=== PATIENT | female | born 1975 | race Caucasian/White ===

== ENCOUNTER 2024-08-01 10:43 | Emergency (ER) | payer MEDICAID, SELFPAY ==
[2024-08-01 10:47] VITALS: BP 147/92; PULSE 79; TEMP 37.1; O2SAT 97
--- NOTE | 2024-08-01 10:56 | PC.NURSE ---
limited on ROM with lifting arm d/t pain increase
--- NOTE | 2024-08-01 10:59 | ED_ITS ---
HPI HPI - General Adult General Chief complaint: Extremity Injury, Upper Stated complaint: UPPER EXTREMITY PAIN Time Seen by Provider: 08/01/24 10:47 Source: patient Mode of arrival: walk-in Limitations: no limitations History of Present Illness HPI narrative: 48-year-old female presents to the emergency department for right shoulder pain. She gives no history of injury or unusual activity. It has been hurting for 2 days and it seemed to get worse today. No weakness or numbness in her arm. No issues with her left shoulder and she is right-handed. The pain hurts more if she moves her arm, particularly away from her body. Related Data Home Medications ?Medication ?Instructions ?Recorded ?Confirmed No Known Home Medications 08/01/24 08/01/24 Previous Rx's ?Medication ?Instructions ?Recorded ibuprofen 800 mg tablet 800 mg PO Q8H PRN pain #20 tabs 08/01/24 Allergies Allergy/AdvReac Type Severity Reaction Status Date / Time No Known Drug Allergies Allergy Verified 08/01/24 10:49 Opioid HPI Opioid Management Most Recent Opioid Data: No Data to Display Review of Systems ROS Narrative A ten point review of systems is negative except as noted above. PFSH PFSH Social History Little interest or pleasure in doing things: not at all Feeling down, depressed, or hopeless: not at all Exam Narrative Exam Narrative: Nurses note and vital signs reviewed and patient is not hypoxic. General: The patient appears well and in no apparent distress. Patient is resting comfortably on cart. Skin: Warm, dry, no pallor noted. There is no rash noted. Head: Normocephalic, atraumatic Eye: Normal conjunctiva, no drainage Ears, Nose, Mouth, and Throat: oral mucosa is moist. Nares patent. Cardiovascular: Regular Rate and Rhythm Respiratory: Patient is in no distress, no accessory muscle use, lungs are clear to auscultation, no wheezing, rales or rhonchi Back: non-tender GI: Soft and nontender Musculoskeletal: The right shoulder is examined. There is no deformity bruising or rash or abrasions. The right elbow is nontender and the radial pulse 2+. Fingers, wrist, and elbow have full range of motion. She seems to have discomfort with range of motion of her shoulder particularly with abduction. Neurological: A&O, normal speech Psychiatric: Cooperative Constitutional Vital Signs, click to edit/add: Last Vital Signs Temp 98.8 F 08/01/24 10:47 Pulse 79 08/01/24 10:47 Resp 16 08/01/24 10:47 BP 147/92 H 08/01/24 10:47 Pulse Ox 97 08/01/24 10:47 O2 Del Method Room Air 08/01/24 10:47 Course Vital Signs Vital signs: Vital Signs Temperature 98.8 F 08/01/24 10:47 Pulse Rate 79 08/01/24 10:47 Respiratory Rate 16 08/01/24 10:47 Blood Pressure 147/92 H 08/01/24 10:47 Pulse Oximetry 97 08/01/24 10:47 Oxygen Delivery Method Room Air 08/01/24 10:47 Temperature 98.8 F 08/01/24 10:47 Pulse Rate 79 08/01/24 10:47 Respiratory Rate 16 08/01/24 10:47 Blood Pressure 147/92 H 08/01/24 10:47 Pulse Oximetry 97 08/01/24 10:47 Oxygen Delivery Method Room Air 08/01/24 10:47 Medical Decision Making MDM Narrative Medical decision making narrative: X-ray per radiologist shows no acute findings. Sling applied, application checked by me and found to be appropriate, she is neurovascularly intact. She was prescribed ibuprofen and an appointment was made for her to see Dr. Hamilton on August 04 at 12:30 PM. Treatment diagnosis and follow-up were discussed with the patient. Differential Diagnosis Differential Diagnosis: Shoulder sprain, arthritis, rotator cuff injury Imaging Data Right shoulder x-ray: Radiologist's impression: No acute bony or articular abnormality. No bony erosion Discharge Plan Discharge Chief Complaint: Extremity Injury, Upper Clinical Impression: Pain in right shoulder Patient Disposition: Home, Self-Care Time of Disposition Decision: 11:39 Condition: Good Mode of Transportation: Private Vehicle Prescriptions / Home Meds: New ibuprofen 800 mg tablet 800 mg PO Q8H PRN (Reason: pain) Qty: 20 0RF No Action No Known Home Medications Print Language: Maltese Instructions: Shoulder Pain (ED) Referrals: [facility] [Primary Care Provider] - 1 week Eduar Hamilton MD [Physician] - 08/04/24 12:30 pm
== END 2024-08-01 12:08 | disposition home or self-care (01) ==
PROVIDERS: Emergency Provider Emergency Medicine
DX: M25.511 Pain in right shoulder (principal)
CPT/HCPCS: 73030; 99283

== ENCOUNTER 2024-08-20 12:03 | Outpatient (OUT) | payer MEDICAID, SELFPAY ==
--- NOTE | 2024-08-20 12:05 | MR_ITS ---
The [address] [address] Patient Name: RICHIE GUTIERREZ MRN: [facility]:[id number] date: 1975 Sex: F Assigned Patient Location: MRI Current Patient Location: MRI Accession/Order Number: [id number] Exam Date: 08/20/2024 14:00 Report Date: 08/20/2024 14:11 At the request of: JOY JOY Procedure: MR shoulder RT wo con MRI right Shoulder without contrast TECHNIQUE: Multiplanar T1 and T2-weighted imaging obtained without contrast. HISTORY: Right shoulder pain for 3 months. No injury COMPARISON: None BONE MARROW EDEMA: No focal subchondral bone marrow edema of the posterior lateral portion of the humeral head superiorly. Focal bone marrow edema of the greater tuberosity. FRACTURE: None AC JOINT: Degenerative spurring and reactive bone marrow edema and soft tissue edema. SHOULDER ROOF LIGAMENTS: The coracoacromial and coracoclavicular ligaments are intact. ROTATOR CUFF: Full thickness tear of the supraspinatus tendon near the greater tuberosity insertion. Mild less than 1 cm retraction. Thickening and increased signal changes of the supraspinatus tendon consistent with tendinosis. Teres minor tendon intact. Subscapularis tendon intact. ROTATOR CUFF INTERVAL: Unremarkable BURSAL FLUID: Present GLENOID: Suspected Bankart tear cartilaginous tear anterior portion of the labrum. BICEPS LABRAL COMPLEX: Intact LONG HEAD OF BICEPS TENDON: Intact GLENOHUMERAL LIGAMENTS: The superior glenohumeral ligament is intact. The middle glenohumeral ligament is intact. The anterior and posterior glenohumeral ligaments are intact. JOINT EFFUSION: Large MUSCLES: Normal signal intensity of the muscles. NO SUBCUTANEOUS TISSUES: No subcutaneous abnormalities identified. MR/MR shoulder RT wo con IMPRESSION: Full-thickness tear anterior portion of the subscapularis tendon near the greater tuberosity insertion. Less than 1 cm retraction. Tendinosis of the infraspinatus tendon. Large joint effusion and subacromial subdeltoid bursal fluid. Spurring of acromioclavicular joint. Concern for cartilaginous Bankhart lesion anterior upper portion of the glenoid labrum. Hill-Sachs deformity. Correlate with history of shoulder dislocation. Impression dictated by: Tito Back M.D.08/20/2024 2:11 PM Dictation Location: [place] [address] Electronically authenticated by: [id number] Y Date: 08/20/2024 14:11
--- OUTSIDE RECORDS SUMMARY | 2024-08-20 12:13 | XMS_ITS | CCD ---
Author Organization [facility] ion [facility] Care Team Providers Care Director Product Management Name Role Phone Demi Garcia Primary Care Provider [phone] DEMI GARCIA Primary Care Unavailable PRADEEP PARISH Attending Unavailable DEMI GARCIA Primary Care Unavailable SE SMALLWOOD Admitting Unavailable SE SMALLWOOD Attending Unavailable DEMI GARCIA Primary Care Unavailable DEMI GARCIA Primary Care Unavailable [facility] [place], [place] JESUS Primary Care Unavailable JACK, DR VASILIY Osborne Admitting Unavailabl e JACK, DR VASILIY Osborne Consulting Unavailabl e JACK, DR VASILIY Osborne Attending Unavailabl e RADHA, DR SAKSHI Martinez Consulting Unavailable Radha TIPPLE REPAIRER - Demi QUESADA Primary Care Pro vider Valarie Charles Unavailable Lainey Luo Unavailable Piedad Holland Unavailable Violetta Cao Unavailable Unavailable Primary Care Provider Unavailabl e NO FAMILY, PHYSICIAN Primary Care Provider Unava ilMD Wade Gagnon Emergency Provider Wade Cook Attending Unavailable Wade Cook Admitting Unavailable NO FAMILY, PHYSICIAN Primary Care Unavailable SUSAN GARBIEL Attending Unavailable BENEDICTO, KAREN Referring Unavailable BENEDICTO, KAREN Primary Care Unavailable Unavailable Primary Care Provider Unavailabl e ANTHONY LOZANO Attending Unavailable SELF Referring Unavailable ANTHONY LOZANO Referring Unavailable Benedicto TIPPLE REPAIRER-AERIAL GUNNER SUPERINTENDENT, Karen Primary Care Provider BENEDICTO, KAREN Referring Unavailable BENEDICTO, KAREN Primary Care Unavailable BENEDICTO, KAREN Referring Unavailable BENEDICTO, KAREN Primary Care Unavailable BENEDICTO, BAXTER Primary Care Unavailable JAGJIT HERRERA Attending Unavailable JAGJIT HERRERA Attending Unavailable JAGJIT HERRERA Referring Unavailable BENEDICTO, BAXTER Primary Care Unavailable WADE ANDRES Admitting Unavailable WADE ANDRES Attending Unavailable BENEDICTO, BAXTER Primary Care Unavailable JOSE TARIQ Attending Unavailable BENEDICTO, BAXTER Primary Care Unavailable WADE ANDRES Attending Unavailable WADE ANDRES Referring Unavailable BENEDICTO, BAXTER Primary Care Unavailable ADAM ESTRELLA Attending Unavailable BENEDICTO, BAXTER Referring Unavailable BENEDICTO, BAXTER Primary Care Unavailable BENEDICTO, BAXTER Primary Care Unavailable DEMARIO ARIZMENDI Attending Unavailable BENEDICTO, BAXTER Primary Care Unavailable WADE KNOX Attending Unavaila ble Medications Current Medications Medication Drug Class(es) Dates Sig (Normalized) Sig (Original) acetaminophen 325 mg oral tablet (1 source) Start: 05-02-2019 650 mg, Oral, EVERY 4 HOURS PRN, Fever, For temp greater than 100.5 F (38 C), Starting Sun05/02/19 at 1449 Maximum dose of acetaminophen is 4000 mg from all sources in 24 hours. [id number] 200 actuat albuterol 0.09 mg/actuat metered dose inhaler (3 sources) beta2-Adrenergic Agonist Start: 01-17-2022 take 2 puff(s) by inhalation every four to six hours as needed Albuterol Sulfate HFA 108 (90 Base) MCG/ACT 2 puffs as needed Inhalation every 4-6 hours for 14 days Jan, Active Start: 03-07-2021 End: 08-24-2023 take 2 puff(s) by inhalation every four hours as needed for wheezing albuterol (PROVENTIL HFA;VENTOLIN HFA) 90 mcg/actuation inhaler Indications: Viral URI with cough , COPD exacerbation ([facility]) Inhale 2 puffs every 4 (four) hours as needed for wheezing. 18 g 03/07/2021 08/24/2023 Discontinued (Therapy completed) atorvastatin 10 mg oral tablet (4 sources) HMG-CoA Reductase Inhibitor Start: 05-02-2019 take 10 mg by mouth once daily 10 mg, Oral, DAILY, First dose on Sun05/02/19 at 1845 ubidecarenone 50 mg oral capsule (3 sources) take 1 tablet by mouth once daily Coenzyme Q10 (CO Q-10) 50 MG CAPS Take 1 tablet by mouth nightly 0 Active dexamethasone 0.001 mg/mg / tobramycin 0.003 mg/mg ophthalmic ointment (1 source) Aminoglycoside Antibacterial, Corticosteroid Start: 07-05-2022 TobraDex 0.3-0.1 % 1 application Ophthalmic Three times a day Jul, Active doxycycline hyclate 100 mg oral capsule (1 source) Tetracycline-class Drug Start: 07-31-2022 take 1 capsule by mouth every twelve hours Doxycycline Hyclate 100 MG 1 capsule Orally Twice a day for 10 Jul, Active 0.4 ml enoxaparin sodium 100 mg/ml prefilled syringe (1 source) Low Molecular Weight Heparin Start: 05-02-2019 inject 40 mg by subcutaneous injection once daily 40 mg, Subcutaneous, DAILY, First dose on Sun05/02/19 at 1600 erythromycin 0.005 mg/mg ophthalmic ointment (1 source) Macrolide, Macrolide Antimicrobial Start: 11-28-2017 Erythromycin 5 MG/GM 1 application four times per day Ophthalmic Four times a day for 14 days Nov, Active estrogens, conjugated (prison) 0.3 mg oral tablet (4 sources) Estrogen Start: 05-02-2019 take 0.45 mg by mouth once daily 0.45 mg, Oral, DAILY, First dose on Sun05/02/19 at 1845 take 1 tablet by mouth once alex y estrogens, conjugated, (PREMARIN) 0.45 MG tablet Take 0.45 mg by mouth daily 0 Active magnesium hydroxide 80 mg/ml oral suspension (1 source) Start: 05-02-2019 take 30 mL by mouth once daily as needed for constipation 30 mL, Oral, DAILY PRN, Constipation, Starting Sun05/02/19 at 1449 First line therapy for constipation. 24 hr metoprolol succinate 25 mg extended release oral tablet (1 source) beta-Adrenergic Victoria Start: 09-20-2023 take 1 tablet by mouth every twenty-four hours in the morning metoprolol succinate XL (TOPROL XL) 25 mg 24 hr tablet Take 1 tablet (25 mg total) by mouth in the morning. 90 tablet 3 09/20/2023 Active naproxen 500 mg oral tablet (1 source) Nonsteroidal Anti-inflammatory Drug Start: 10-31-2022 take 1 tablet by mouth twice daily Naproxen (Naprosyn) 500 mg tablet Active 500 MG PO Twice daily October 31, 2022 12:00am 24 hr nicotine 0.875 mg/hr transdermal system (3 sources) Cholinergic Nicotinic Agonist Start: 05-04-2019 apply 1 dose transdermal route once daily nicotine (NICODERM CQ) 21 MG/24HR Place 1 patch onto the skin daily 30 patch 3 05/04/2019 Active Start: 05-04-2019 apply 1 dose transde rmal route once daily nicotine (NICODERM CQ) 21 MG/24HR Place 1 patch onto the skin daily 30 patch 3 05/04/2019 Active Start: 05-02-2019 nicotine (MAX DERM CQ) 21 MG/24HR 1 patch ondansetron 4 mg oral tablet (6 sources) Serotonin-3 Receptor Antagonist Start: 03-07-2021 End: 08-24-2023 take 1 tablet by mouth every eight hours as needed Ondansetron HCl 4 MG 1 tablet Orally every 8 hours as needed for 5 days Jan, Active Start: 05-02-2019 4 mg, Intraven ous, EVERY 6 HOURS PRN, Nausea, Starting 05/02/19 at 1449 Start: 01-14-2019 End: 01-14-2019 ondansetron (ZOFRAN-ODT) disintegrating tablet 4 mg Start: 10-01-2018 End: 01-14-2019 take 1 tablet by mouth every eight hours as needed for nausea ondansetron (ZOFRAN ODT) 4 MG disintegrating tablet Take 1 tablet by mouth every 8 hours as needed for Nausea or Vomiting 12 tablet 0 10/01/2018 01/14/2019 Discontinued (Alternate therapy) predniSONE 20 mg oral tablet (1 source) Start: 07-31-2022 take 1 tablet by mouth every twelve hours predniSONE 20 MG 1 tablet Orally 2 times a day for 5 day(s) Jul, Active sod sulf-pot chloride-mag sulf 1.479-0.188- 0.225 gram tablet (1 source) Start: 08-24-2023 sod sulf-pot c hloride-mag sulf 1.479-0.188- 0.225 gram tablet Indications: Encounter for screening colonoscopy Please see instructional sheet given by physicians office. 24 tablet 08/24/2023 Active 3 ml sodium chloride 9 mg/ml injection (5 sources) Start: 05-02-2019 10 mL, Intrave nous, EVERY 12 HOURS SCHEDULED (2 times per day), First dose on Sun05/02/19 at 2100 Start: 05-02-2019 Intravenous, a t 125 mL/hr, CONTINUOUS, Starting Sun05/02/19 at 1515 Start: 05-02-2019 take 10 mL intraveno usly once as needed 10 mL, Intravenous, PRN, Line Care, After every IV line use, Starting Sun05/02/19 at 1449 Start: 05-02-2019 End: 05-02-2019 1,000 mL (18.1 mL/kg), Intravenous, at 500 mL/hr, Administer over 2 Hours, ONCE, Sun05/02/19 at 1515, For 1 dose Start: 05-02-2019 End: 05-02-2019 0.9 % sodium chloride bolus vitamin b12 1 mg oral tablet (4 sources) Vitamin B12 Start: 05-02-2019 take 2500 ug by mouth once daily 2,500 mcg, Oral, DAILY, First dose on Sun05/02/19 at 1845 vitamin B-12 (CY ANOCOBALAMIN) 100 MCG tablet Take 2,500 mcg by mouth daily 0 Active Completed/Discontinued Medications Medication Drug Class(es) Dates Sig (Normalized) Sig (Original) acetaminophen 325 mg / HYDROcodone bitartrate 5 mg oral tablet (1 source) Opioid Agonist Start: 06-30-2013 End: 01-14-2019 take 1 tablet by mouth every six hours as needed for pain HYDROcodone-acetam inophen (NORCO) 5-325 MG per tablet Take 1 tablet by mouth every 6 hours as needed for Pain (Avoid driving and alcohol use but taking this medication, may cause fatigue). 8 tablet 0 06/30/2013 01/14/2019 Discontinued (Therapy completed) benzonatate 100 mg oral capsule (1 source) Non-narcotic Antitussive Start: 03-07-2021 End: 08-24-2023 take 1 capsule by mouth every eight hours benzonatate (TESSALON) 100 mg capsule Take 1 capsule (100 mg total) by mouth every 8 (eight) hours. 21 capsule 03/07/2021 08/24/2023 Discontinued (Therapy completed) ibuprofen 800 mg oral tablet (5 sources) Nonsteroidal Anti-inflammatory Drug Start: 04-14-2022 End: 08-24-2023 take 1 tablet by mouth three times daily ibuprofen (MOTRIN) 800 mg tablet Take 1 tablet (800 mg total) by mouth 3 (three) times a day. 21 tablet 04/14/2022 08/24/2023 Discontinued (Therapy completed) Start: 05-02-2019 take 800 mg by mouth every six hours as needed for pain 800 mg, Oral, EVERY 6 HOURS PRN, Pain Moderate (4-6), Starting 05/02/19 at 1820 Do not crush or chew. take 4 tablets by [facility] every six hours as needed for pain ibuprofen (ADVIL;MOTRIN) 200 MG tablet Take 800 mg by mouth every 6 hours as needed for Pain. 0 Active iv contrast (will be provided with radiology test) (3 sources) Start: 12-12-2022 End: 12-13-2022 inject 1 dose intravenously once iv contrast (will be provided with radiology test) MRI Brain Inject, intravenously, once for 1 dose.No IV access, insert saline lock prior to beginning of sedation, infusion, injection of imaging exam.Discontinue saline lock post exam. If Pt. has a central line or IVAD, may access for administration according to line specific nursing protocol.Once exam is complete flush line and de-access according to line specific nursing protocol in the MR contrast administration guidelines link 1 Each 0 12/12/2022 12/13/2022 Start: 05-23-2022 End: 05-24-2022 inject 1 dose intravenously once iv contrast (will be provided with radiology test) MRI Brain Inject, intravenously, once for 1 dose.No IV access, insert saline lock prior to beginning of sedation, infusion, injection of imaging exam.Discontinue saline lock post exam. If Pt. has a central line or IVAD, may access for administration according to line specific nursing protocol.Once exam is complete flush line and de-access according to line specific nursing protocol in the MR contrast administration guidelines link 1 Each 0 05/23/2022 05/24/2022 Start: 04-17-2022 End: 04-18-2022 inject 1 dose intravenously once iv contrast (will be provided with radiology test) MRI Brain Inject, intravenously, once for 1 dose.No IV access, insert saline lock prior to beginning of sedation, infusion, injection of imaging exam.Discontinue saline lock post exam. If Pt. has a central line or IVAD, may access for administration according to line specific nursing protocol.Once exam is complete flush line and de-access according to line specific nursing protocol in the MR contrast administration guidelines link 1 Each 0 04/17/2022 04/18/2022 Active Comment on above: MRI Brain Inject, in travenously, once for 1 dose.No IV access, insert saline lock prior to beginning of sedation, infusion, injection of imaging exam.Discontinue saline lock post exam. If Pt. has a central line or IVAD, may access for administration according to line specific nursing protocol.Once exam is complete flush line and de-access according to line specific nursing protocol in the MR contrast administration guidelines link 10 ml lidocaine hydrochloride 10 mg/ml injection (1 source) Antiarrhythmic, Amide Local Anesthetic Start: End: lidocaine 1 % injection 5 mL loratadine 10 mg oral tablet (5 sources) End: CLARITIN 10 mg tablet Take 1 tablet (10 mg total) by mouth as needed for allergies. 09/20/2023 Discontinued losartan potassium 25 mg oral tablet (1 source) Angiotensin 2 Receptor Victoria Start: End: take 1 tablet by mouth in the morning losartan (COZAAR) 25 mg tablet Take 1 tablet (25 mg total) by mouth in the morning. 08/01/2023 08/24/2023 Discontinued (Therapy completed) Problems Active Problems Problem Classification Problem Date Documented Da te Episodic/Chronic Chronic obstructive pulmonary disease and bronchiectasis (1 source) Bronchitis, not specified as acute or chronic Episodic Disorders of lipid metabolism (5 sources) Mixed hyperlipidemia; Translations: [Mixed hyperlipidemia] Onset: 04-04-2018 04-04-2018 Chronic E Codes: Fall (1 source) Unspecified fall, initial encounter; Translations: [UNSPECIFIED FALL INITIAL ENCOUNTER] Onset: 11-22-2020 Episodic Essential hypertension (3 sources) Essential hypertension; Translations: [Essential (primary) hypertension] Onset: 09-20-2023 09-20-2023 Chronic Immunizations and screening for infectious disease (8 sources) Encounter for screening for other viral diseases; Translations: [Contact with and (suspected) exposure to other viral communicable diseases] Onset: 02-25-2021 Resolved: 01-17-2022 Episodic Inflammation; infection of eye (except that caused by tuberculosis or sexually transmitteddisease) (1 source) Hordeolum internum right upper eyelid Episodic Other bone disease and musculoskeletal deformities (1 source) Costal chondritis; Translations: [Chondrocostal junction syndrome [Tietze]] 10-31-2022 Episodic Other bone disease and musculoskeletal deformities (1 source) Chondrocostal junction syndrome [Tietze]; Translations: [Chondrocostal junction syndrome (tietze)] Onset: 07-11-2024 Episodic Other injuries and conditions due to external causes (1 source) Injury due to chemical exposure; Translations: [Exposure to chemical inhalation] Episodic Other lower respiratory disease (1 source) Personal history of other diseases of the respiratory system Episodic Other lower respiratory disease (1 source) Rib pain Onset: 07-11-2024 Episodic Other nervous system disorders (5 sources) Carpal tunnel syndrome of right wrist; Translations: [Carpal tunnel syndrome, right upper limb] Onset: 06-04-2018 06-04-2018 Chronic Other non-traumatic joint disorders (3 sources) Pain in left ankle and joints of left foot; Translations: [PAIN IN LEFT ANKLE] Onset: 11-18-2020 Episodic Other nutritional; endocrine; and metabolic disorders (7 sources) H/O: endocrine disorder; Translations: [Personal history of other endocrine, nutritional and metabolic disease] Episodic Other upper respiratory disease (5 sources) Chronic rhinitis; Translations: [Chronic rhinitis] Onset: 04-04-2018 04-04-2018 Chronic Sprains and strains (1 source) Sprain of unspecified ligament of left ankle, initial encounter; Translations: [SPRAIN UNS LIGAMENT LT ANKLE INIT] Onset: 11-22-2020 Episodic Substance-related disorders (5 sources) Caffeine-related disorder; Translations: [Other stimulant abuse, uncomplicated] Onset: 08-11-2019 08-11-2019 Chronic Unclassified (1 source) Colon Cancer Screening Onset: 08-24-2023 Unclassified (1 source) New Patient Onset: 09-20-2023 Past or Other Problems Problem Classification Problem Date Documented Da te Episodic/Chronic Allergic reactions (5 sources) Irritant contact dermatitis; Translations: [Irritant contact dermatitis due to other agents] Onset: 10-02-2018 10-02-2018 Episodic Conditions associated with dizziness or vertigo (2 sources) Dizziness and giddiness; Translations: [Dizziness] Onset: 02-17-2024 Episodic Fluid and electrolyte disorders (4 sources) Dehydration; Translations: [Dehydration] Onset: 05-02-2019 Episodic Mood disorders (5 sources) Mood disorders Onset: 09-24-2019 09-24-2019 Nonspecific chest pain (2 sources) Chest pain, unspecified; Translations: [Chest pain] Onset: 10-31-2022 Episodic Open wounds of extremities (1 source) Laceration of finger Episodic Other aftercare (5 sources) Removal of sutures done; Translations: [Encounter for removal of sutures] Onset: 05-27-2019 05-27-2019 Episodic Other and unspecified benign neoplasm (1 source) Polyp of colon; Translations: [Polyp of colon] Onset: 09-03-2023 Episodic Other circulatory disease (1 source) Elevated blood-pressure reading, without diagnosis of hypertension Onset: 12-09-2021 Resolved: 12-09-2021 Episodic Other gastrointestinal disorders (5 sources) Functional diarrhea; Translations: [Functional diarrhea] Onset: 10-02-2018 10-02-2018 Episodic Other injuries and conditions due to external causes (5 sources) Injury of left hip region; Translations: [Unspecified injury of left hip, initial encounter] Onset: 05-15-2018 05-15-2018 Episodic Other lower respiratory disease (1 source) Solitary pulmonary nodule; Translations: [Solitary pulmonary nodule] Onset: 02-17-2024 Episodic Other lower respiratory disease (1 source) Shortness of breath; Translations: [Shortness of breath] Onset: 08-09-2023 Episodic Other nervous system disorders (5 sources) Paresthesia of upper limb; Translations: [Anesthesia of skin] Onset: 09-24-2019 09-24-2019 Episodic Other non-traumatic joint disorders (5 sources) Chronic pain of right upper limb; Translations: [Pain in right shoulder] Onset: 03-21-2018 03-21-2018 Episodic Other non-traumatic joint disorders (5 sources) Hip pain; Translations: [Pain in right hip] Onset: 03-21-2018 03-21-2018 Episodic Other non-traumatic joint disorders (5 sources) Bilateral wrist pain; Translations: [Pain in right wrist] Onset: 07-18-2018 07-18-2018 Episodic Other screening for suspected conditions (not mental disorders or infectious disease) (13 sources) Encounter for screening for malignant neoplasm of colon; Translations: [Patient encounter status] Onset: 04-04-2018 08-24-2023 Episodic Other upper respiratory infections (2 sources) Acute upper respiratory infection, unspecified; Translations: [Acute pharyngitis, unspecified] Onset: 03-06-2021 Resolved: 12-09-2021 Episodic Residual codes; unclassified (6 sources) Tobacco user; Translations: [Tobacco use] Onset: 03-21-2018 03-21-2018 Episodic Residual codes; unclassified (5 sources) Family history of umeuj-1-[id number] deficiency; Translations: [Family history of other endocrine, nutritional and metabolic diseases] Onset: 03-21-2018 03-21-2018 Episodic Residual codes; unclassified (1 source) Tobacco use; Translations: [Tobacco use] Onset: 03-21-2018 Episodic Spondylosis; intervertebral disc disorders; other back problems (5 sources) Neck pain; Translations: [Cervicalgia] Onset: 09-04-2019 09-04-2019 Episodic Syncope (15 sources) Syncope and collapse; Translations: [Syncope] Onset: 05-02-2019 Episodic Unclassified (1 source) Cough R05.9 Urinary tract infections (5 sources) Acute cystitis; Translations: [Acute cystitis without hematuria] Onset: 05-06-2019 05-06-2019 Episodic Viral infection (1 source) COVID-19 Onset: 01-17-2022 Resolved: 01-17-2022 Results Test Name Value Interpretation Reference Range Facility XR RIBS LT 3 VWS W PA CHESTo n 07-11-2024 XR RIBS LT 3 VWS W PA CHEST XR RIBS LT 3 VWS W PA CHEST HISTORY: A 48-year-old female with the history of the left lower rib cage pain for few days. TECHNIQUE: Left rib cage with PA view of chest: 3 views COMPARISON: No relevant prior studies are available for comparison. FINDINGS: Marker was placed in the region of the interest of the left lower rib cage. AP and oblique views of the left rib cage reveal no fractures or acute bony pathology. Left rib cage is intact. PA view of chest reveals clear lung saavedra and costophrenic angles. No evidence of pneumothorax or hemothorax. Heart and mediastinum are unremarkable. Hemidiaphragms are normal in position and contour. IMPRESSION: * No evidence of fracture or acute bony pathology in the left rib cage. * No evidence of pulmonary infiltrate, pneumothorax or acute pulmonary pathology. Finalized by Rusty Olivia MD on 07/11/2024 6:06 PM Normal [facility] BASIC METABOLIC PANLon 02-16 Anion gap [Moles/Vol] 11 mmol/L Normal 5-15 [facility] Comment on above: Performed By: #### Keith TEE, 81226-8, BMP ####[facility] ([id number])[address] [place] [address] 80997 Calcium [Mass/Vol] 9.2 mg/dL Normal 8.5-10.5 [facility] Comment on above: Performed By: #### Keith TEE, 46770-7, BMP ####[facility] ([id number])[address] [place] [address] 50985 Chloride [Moles/Vol] 101 mmol/L Normal 98-109 [facility] Comment on above: Performed By: #### Keith TEE, 03358-2, BMP ####[facility] ([id number])[address] [place] [address] 54216 CO2 [Moles/Vol] 22 mmol/L Normal 22-32 [facility] Comment on above: Performed By: #### Keith TEE, 11937-1, BMP ####[facility] ([id number])[address] [place] [address] 23814 Creatinine [Mass/Vol] 0.73 mg/dL Normal 0.40-1.00 [facility] Comment on above: Result Comment: METH OD TRACEABLE TO IDMS STANDARD Performed By: #### Keith TEE, 74571-3, BMP ####[facility] ([id number])[address] [place] [address] 03144 eGFR (CKD-EPI) NON-RACE DEPENDENT >90 Normal >59 [facility] Comment on above: Result Comment: Reported eGFR is based on the CKD-EPI 2020 equation that does not use a race coefficient. Performed By: #### Keith TEE, 73868-0, BMP ####[facility] ([id number])[address] [place] [address] 26051 Glucose [Mass/Vol] 126 mg/dL High 65-99 [facility] Comment on above: Performed By: #### Keith TEE, 98725-7, BMP ####[facility] ([id number])[address] [place] [address] 73018 Potassium [Moles/Vol] 3.3 mmol/L Low 3.5-5.0 [facility] Comment on above: Performed By: #### Keith TEE, 73445-7, BMP ####[facility] ([id number])[address] [place] [address] 60354 Sodium [Moles/Vol] 134 mmol/L Normal 134-146 [facility] Comment on above: Performed By: #### Keith TEE, 71339-3, BMP ####[facility] ([id number])[address] [place] [address] 40998 Urea nitrogen [Mass/Vol] 11 mg/dL Normal 5-23 [facility] Comment on above: Performed By: #### Keith TEE, 82159-7, BMP ####[facility] ([id number])[address] [place] [address] 23861 CBC AND AUTO DIFFon 20 24 ABSOLUTE BASOPHIL 0.0 X10E9/L Normal 0.0-0.2 [facility] Comment on above: Performed By: #### Keith TEE, 19937-1, BMP #### [facility] ([id number]) [address] [place] [address] 15224 ABSOLUTE NEUTROPHIL 4.6 X10E9/L Normal 1.5-6.6 [facility] Comment on above: Performed By: #### Keith TEE, 25276-6, BMP #### [facility] ([id number]) [address] [place] [address] 22400 Basophils/100 WBC (Bld) 0.3 % Normal [facility] Comment on above: Performed By: #### Keith TEE, 07015-0, BMP #### [facility] ([id number]) [address] [place] [address] 18146 Eosinophils (Bld) [#/Vol] 0.0 10*3/uL Normal 0.0-0.4 [facility] Comment on above: Performed By: #### Keith TEE, 69042-1, BMP #### [facility] ([id number]) [address] [place] [address] 06126 Eosinophils/100 WBC (Bld) 0.7 % Normal [facility] Comment on above: Performed By: #### Keith TEE, 14172-3, BMP #### [facility] ([id number]) [address] [place] [address] 89036 Erythrocyte distribution width (RBC) [Ratio] 13.2 % Normal 11.5-15.0 [facility] Comment on above: Performed By: #### Keith TEE, 25834-9, BMP #### [facility] ([id number]) [address] [place] [address] 20360 Hematocrit (Bld) [Volume fraction] 45.5 % Normal 35-47 [facility] Comment on above: Performed By: #### Keith TEE, 74729-2, BMP #### [facility] ([id number]) [address] [place] [address] 35659 Hemoglobin (Bld) [Mass/Vol] 15.9 g/dL High 11.7-15.5 [facility] [facility] Comment on above: Performed By: #### Keith TEE, 67757-6, BMP #### [facility] ([id number]) [address] [place] [address] 34709 Lymphocytes (Bld) [#/Vol] 1.5 10*3/uL Normal 1.0-3.5 [facility] Comment on above: Performed By: #### Keith TEE, 69238-8, BMP #### [facility] ([id number]) [address] [place] [address] 52775 Lymphocytes/100 WBC (Bld) 23.7 % Normal [facility] Comment on above: Performed By: #### Keith TEE, 63812-6, BMP #### [facility] ([id number]) [address] [place] [address] 00119 MCH (RBC) [Entitic mass] 33.7 pg Normal 27-34 [facility] Comment on above: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 [place] [address] 82614 GLUCOSE SHIRA Negative Normal NEG [facility] Comment on above: Performed By: #### N UM #### [facility] ([id number]) [address] [place] [address] 82276 KETONES SHIRA Negative Normal NEG [facility] Comment on above: Performed By: #### N UM #### [facility] ([id number]) [address] [place] [address] 23270 LEUKOCYTE ESTERASE SHIRA Negative Normal NEG [facility] Comment on above: Performed By: #### N UM #### [facility] ([id number]) [address] [place] [address] 93433 NITRITE SHIRA Negative Normal NEG [facility] Comment on above: Performed By: #### N UM #### [facility] ([id number]) [address] [place] [address] 52803 PH SHIRA 6.0 Normal 5.0-8.5 [facility] Comment on above: Performed By: #### N UM #### [facility] ([id number]) [address] [place] [address]387 PROTEIN SHIRA Negative Normal NEG [facility] Comment on above: Performed By: #### N UM #### [facility] ([id number]) [address] [place] [address] 64988 SPECIFIC GRAVITY SHIRA 1.010 Normal 1.003-[address] [place] [address] Comment on above: Performed By: #### N UM #### [facility] ([id number]) [address] [place] [address] 48996 UROBILINOGEN SHIRA 0.2 eu/dL Normal <1.1 [facility] Comment on above: Performed By: #### N UM #### [facility] ([id number]) [address] [place] [address] 60031 XR CHEST 2 VWSon 08-09-2023 XR CHEST 2 VWS XR CHEST 2 VWS CLINICAL INFORMATION: . Shortness of breath on exertion. TECHNIQUE/PROCEDURE: Two view chest. COMPARISON: 03/07/2021 FINDINGS: Endotracheal deviation. Cardiac and mediastinal contours are normal. No consolidation, pneumothorax or pleural effusion. No free air. IMPRESSION: * No radiographic evidence of cardiopulmonary disease. Finalized by Rojelio Escobar MD on 08/09/2023 1:45 PM Normal [facility] MRI BRAIN WO/W IVCONon 12-12 [facility] Activated partial thrombopla stin time (aPTT) in platelet poor plasma by coagulation aOrdered By: Wade Cook on 10-31-2022 aPTT Coag (PPP) [Time] 29.2 s 25.1-36.5 [facility] B-Type Natriuretic Peptideon 10-31-2022 Natriuretic peptide B (Bld) [Mass/Vol] 60.0 pg/mL Normal 5-100 [facility] Comment on above: Result Comment: PERF ORMED BY: [place] [address] PATHOLOGIST [employer] MAINTENANCE SUPERVISOR MOHAN KENNEDY M.D. Performed By: #### P TT, PT, CK, HS TROP, BMP, SCAN CBC, BNP #### [address] Basic Metabolic Panelon 10-06 Anion gap [Moles/Vol] 12.4 mmol/L Normal 6.0-15.0 [facility] Comment on above: Performed By: #### P TT, PT, CK, HS TROP, BMP, SCAN CBC, BNP #### [address] Calcium [Mass/Vol] 9.3 mg/dL Normal 8.6-10.3 [facility] Comment on above: Performed By: #### P TT, PT, CK, HS TROP, BMP, SCAN CBC, BNP #### [place] [address] [place] Chloride [Moles/Vol] 105 mmol/L Normal 98-107 [facility] Comment on above: Performed By: #### P TT, PT, CK, HS TROP, BMP, SCAN CBC, BNP #### [address] CO2 [Moles/Vol] 28.0 mmol/L Normal 21.0-31.0 [facility] Comment on above: Performed By: #### P TT, PT, CK, HS TROP, BMP, SCAN CBC, BNP #### [facility] [address] Creatinine [Mass/Vol] 0.70 mg/dL Normal 0.60-1.20 [facility] Comment on above: Performed By: #### P TT, PT, CK, HS TROP, BMP, SCAN CBC, BNP #### [address] Creatinine Clr Calc Pharmacy 87.36 [facility] Comment on above: Result Comment: PERF ORMED BY: [place] [address] PATHOLOGIST [employer] MAINTENANCE SUPERVISOR MOHAN KENNEDY M.D. Performed By: #### P TT, PT, CK, HS TROP, BMP, SCAN CBC, BNP #### [address] GFR/1.73 sq M.predicted MDRD (S/P/Bld) [Vol rate/Area] mL/min/{1.73_m2} [facility] Comment on above: Performed By: #### P TT, PT, CK, HS TROP, BMP, SCAN CBC, BNP #### [address] Glucose [Mass/Vol] 88 mg/dL Normal 70-100 [facility] Comment on above: Result Comment: [place] Glucose Reference Range is dependent on time and content of last meal. Glucose of more than 200 mg/dL in a nonstressed, ambulatory subject supports the diagnosis of Diabetes Mellitus. ADA recommended reference range Performed By: #### P TT, PT, CK, HS TROP, BMP, SCAN CBC, BNP #### [address] Potassium [Moles/Vol] 3.4 mmol/L Low 3.5-5.1 [facility] Comment on above: Performed By: #### P TT, PT, CK, HS TROP, BMP, SCAN CBC, BNP #### [facility] [address] [place] [address] [place] Sodium [Moles/Vol] 142 mmol/L Normal 136-145 [facility] Comment on above: Performed By: #### P TT, PT, CK, HS TROP, BMP, SCAN CBC, BNP #### [facility] [address] Urea nitrogen [Mass/Vol] 6 mg/dL Low 7-25 [facility] Comment on above: Performed By: #### P TT, PT, CK, HS TROP, BMP, SCAN CBC, BNP #### [facility] [address] Basophils Auto (Bld) [#/Vol] Ordered By: Wade Cook on 10-31-2022 Basophils (Bld) [#/Vol] 0.0 10*3/uL 0.0-0.2 [facility] Basophils/100 WBC Auto (Bld) Ordered By: Wade Cook on 10-31-2022 Basophils/100 WBC (Bld) 0.6 % . [facility] Calcium [Mass/volume] in Ser um or PlasmaOrdered By: Wade Cook on 10-31-2022 Calcium [Mass/Vol] 9.3 mg/dL 8.6-10.3 [facility] Carbon dioxide, total [Moles /volume] in Serum or PlasmaOrdered By: Wade Cook on 10-31-2022 CO2 [Moles/Vol] 28.0 mmol/L 21.0-31.0 [facility] Chloride [Moles/volume] in S kristine or PlasmaOrdered By: Wade Cook on 10-31-2022 Chloride [Moles/Vol] 105 mmol/L 98-107 [facility] Creatine Kinaseon 10-31-2022 CK [Catalytic activity/Vol] 95 U/L Normal 30-223 [facility] Comment on above: Performed By: #### P TT, PT, CK, HS TROP, BMP, SCAN CBC, BNP #### [facility] [address] [place] [id number] [place] Creatine kinase [Enzymatic a ctivity/volume] in Serum or PlasmaOrdered By: Wade Cook on 10-31-2022 CK [Catalytic activity/Vol] 95 U/L 30-223 [facility] Creatinine [Mass/volume] in Serum or PlasmaOrdered By: Wade Cook on 10-31-2022 Creatinine [Mass/Vol] 0.70 mg/dL 0.60-1.20 [facility] ECG 12 lead ECGon 10-31-2022 ECG 12 lead ECG [facility] [place] [address] Electrocardiograph Report Signed Patient: Eliane Gutierrez MR#: [id number] : 1975 Acct:[id number] Age/Sex: 47 / F ADM Date: 10/31/22 Loc: ER Room: Type: [facility] ER Attending Dr: Ordering Provider: Wade Cook MD Date of Service: 10/31/22 ECG/ECG 12 lead ECG: Chest Pain Copies to: Test Reason : Blood Pressure : 162/087 mmHG Vent. Rate : 068 BPM Atrial Rate : 068 BPM P-R Int : 138 ms QRS Dur : 090 ms QT Int : 434 ms P-R-T Axes : 082 068 073 degrees QTc Int : 461 ms Normal sinus rhythm Possible Left atrial enlargement Cannot rule out Anterior infarct , age undetermined Abnormal ECG No previous ECGs available Confirmed by WADE COOK MD ([id number]) on 11/01/2022 1:41:11 AM Referred By: Electronically Signed By:WADE COOK MD Transcribed By: MUS Signed By Wade Cook MD 10/06 12/27 0141 Normal [facility] Eosinophils Auto (Bld) [#/Vo l]Ordered By: Wade Cook on 10-31-2022 Eosinophils (Bld) [#/Vol] 0.1 10*3/uL 0.0-0.45 [facility] Eosinophils/100 WBC Auto (Bl d)Ordered By: Wade Cook on 10-31-2022 Eosinophils/100 WBC (Bld) 1.7 % . [facility] Erythrocyte distribution wid th Auto (RBC) [Ratio]Ordered By: Wade Cook on 10-31-2022 Erythrocyte distribution width (RBC) [Ratio] 13.4 % 11.9-15.3 [facility] Glucose [Mass/volume] in Ser um or PlasmaOrdered By: Wade oCok on 10-31-2022 Glucose [Mass/Vol] 88 mg/dL 70-100 [facility] Comment on above: ADA recommended refe rence rangeRandom Glucose Reference Range is dependent on time and content of last meal. Glucose of more than 200 mg/dL in a nonstressed, ambulatory subject supports the diagnosis of Diabetes Mellitus. Hematocrit Auto (Bld) [Volum e fraction]Ordered By: Wade Cook on 10-31-2022 Hematocrit (Bld) [Volume fraction] 41.5 % 34.0-46.4 [facility] Hemoglobin [Mass/volume] in BloodOrdered By: Wade Cook on 10-31-2022 Hemoglobin (Bld) [Mass/Vol] 14.5 g/dL 11.8-15.4 [facility] Laboratory - CoagulationOrde red By: Wade Cook on 10-31-2022 PT Coag (PPP) [Time] 10.9 s 9.0-12.9 [facility] Leukocytes [#/volume] correc jeremiah for nucleated erythrocytes in Blood by Automated counOrdered By: Wade Cook on 10-31-2022 WBC corrected for nucl RBC Auto (Bld) [#/Vol] 7.8 10*3/uL 3.8-11.6 [facility] Lymphocytes Auto (Bld) [#/Vo l]Ordered By: Wade Cook on 10-31-2022 Lymphocytes (Bld) [#/Vol] 2.6 10*3/uL 1.00-4.8 [facility] Lymphocytes/100 WBC Auto (Bl d)Ordered By: Wade Cook on 10-31-2022 Lymphocytes/100 WBC (Bld) 33.6 % . [facility] MCH Auto (RBC) [Entitic mass ]Ordered By: Wade Cook on 10-31-2022 MCH (RBC) [Entitic mass] 32.3 pg 24.7-34.3 [facility] MCHC Auto (RBC) [Mass/Vol]Or dered By: Wade Cook on 10-31-2022 MCHC (RBC) [Mass/Vol] 35.0 g/dL 32.0-35.0 [facility] MCV Auto (RBC) [Entitic vol] Ordered By: Wade Cook on 10-31-2022 MCV (RBC) [Entitic vol] 92.5 fL 80-100 [facility] Monocytes Auto (Bld) [#/Vol] Ordered By: Wade Cook on 10-31-2022 Monocytes (Bld) [#/Vol] 0.5 10*3/uL 0.0-0.8 [facility] Monocytes/100 WBC Auto (Bld) Ordered By: Wade Cook on 10-31-2022 Monocytes/100 WBC (Bld) 6.5 % . [facility] Natriuretic peptide B [Mass/ Vol]Ordered By: Wade Cook on 10-31-2022 Natriuretic peptide B (Bld) [Mass/Vol] 60.0 pg/mL 5-100 [facility] Neutrophils Auto (Bld) [#/Vo l]Ordered By: Wade Cook on 10-31-2022 Neutrophils (Bld) [#/Vol] 4.5 10*3/uL 1.8-7.7 [facility] Neutrophils/100 WBC Auto (Bl d)Ordered By: Wade Cook on 10-31-2022 Neutrophils/100 WBC (Bld) 57.6 % . [facility] No Panel InformationOrdered By: Wade Cook on 10-31-2022 Estimated GFR (CKD-EPI) > 60.0 mL/Min [facility] Creatinine Clearance (Chem 87.36 [facility] Nucleated erythrocytes [Pres ence] in Blood by Automated countOrdered By: Wade Cook on 10-31-2022 Nucleated RBC Auto Ql (Bld) 0.1 /100{WBC} 0-0.5 [facility] Partial Thromboplastin Timeo n 10-31-2022 aPTT Coag (Bld) [Time] 29.2 s Normal 25.1-36.5 [facility] Comment on above: Result Comment: PERF ORMED BY: [place] [address] PATHOLOGIST [employer] MAINTENANCE SUPERVISOR MOHAN KENNEDY M.D. Performed By: #### P TT, PT, CK, HS TROP, BMP, SCAN CBC, BNP #### [address] Platelet adequacy [Presence] in Blood by Light microscopyOrdered By: Wade Cook on 10-31-2022 Platelets LM Ql (Bld) Normal Normal [facility] Platelet mean volume Auto (B ld) [Entitic vol]Ordered By: Wade Cook on 10-31-2022 Platelet mean volume (Bld) [Entitic vol] 9.8 fL 6.3-10.7 [facility] Platelet morphology finding [Identifier] in BloodOrdered By: Wade Cook on 10-31-2022 Platelet morphology finding Nom (Bld) N/A [facility] Platelet poor plasma interna tional normalized ratio (INR) by coagulation assay (relatOrdered By: Wade Cook on 10-31-2022 INR Coag (PPP) [Relative time] 0.9 {INR} [facility] Comment on above: INR Therapeutic Rang e A) Pre- and Peroperative OAT started two weeks before surgery. NOT HIP SURGERY: 1.5 - 2.5 HIP SURGERY: 2 - 3B) Primary and secondary prevention of venous THROMBOSIS: 2 - 3C) Active venous thrombosis, pulmonary embolismand prevention of recurrent venous thrombosis: 2 - 3D) Prevention of arterial thromboembolismincluding patients with mechanical heart valves: 3 - 4.5 Platelets Auto (Bld) [#/Vol] Ordered By: Wade Cook on 10-31-2022 Platelets (Bld) [#/Vol] 230 10*3/uL 150-450 [facility] Potassium [Moles/volume] in Serum or PlasmaOrdered By: Wade Cook on 10-31-2022 Potassium [Moles/Vol] 3.4 mmol/L 3.5-5.1 [facility] Prothrombin Time INRon 10-31 INR Coag (PPP) [Relative time] 0.9 {INR} Normal [facility] Comment on above: Result Comment: INR Therapeutic Range A) Pre- and Peroperative OAT started two weeks before surgery. NOT HIP SURGERY: 1.5 - 2.5 HIP SURGERY: 2 - 3 B) Primary and secondary prevention of venous THROMBOSIS: 2 - 3 C) Active venous thrombosis, pulmonary embolism and prevention of recurrent venous thrombosis: 2 - 3 D) Prevention of arterial thromboembolism including patients with mechanical heart valves: 3 - 4.5 Performed By: #### P TT, PT, CK, HS TROP, BMP, SCAN CBC, BNP #### [facility] [address] PT Coag (PPP) [Time] 10.9 s Normal 9.0-12.9 [facility] Comment on above: Performed By: #### P TT, PT, CK, HS TROP, BMP, SCAN CBC, BNP #### [facility] [address] RBC Auto (Bld) [#/Vol]Ordere d By: Wade Cook on 10-31-2022 RBC (Bld) [#/Vol] 4.49 10*6/uL 3.60-5.00 [facility] RBC morphologyOrdered By: Estela Cook on 10-31-2022 RBC morphology finding Nom (Bld) N/A [facility] Red blood cell stomatocyte d etectionOrdered By: Wade Cook on 10-31-2022 Stomatocytes LM Ql (Bld) Slight [facility] Scan and CBCon 10-31-2022 Basophils (Bld) [#/Vol] 0.0 10*3/uL Normal 0.0-0.2 [facility] Comment on above: Performed By: #### P TT, PT, CK, HS TROP, BMP, SCAN CBC, BNP #### [address] Basophils/100 WBC (Bld) 0.6 % Normal . [facility] Comment on above: Performed By: #### P TT, PT, CK, HS TROP, BMP, SCAN CBC, BNP #### [facility] [address] Eosinophils (Bld) [#/Vol] 0.1 10*3/uL Normal 0.0-0.45 [facility] Comment on above: Performed By: #### P TT, PT, CK, HS TROP, BMP, SCAN CBC, BNP #### [place] [address] [place] Eosinophils/100 WBC (Bld) 1.7 % Normal . [facility] Comment on above: Performed By: #### P TT, PT, CK, HS TROP, BMP, SCAN CBC, BNP #### [address] Erythrocyte distribution width (RBC) [Ratio] 13.4 % Normal 11.9-15.3 [facility] Comment on above: Performed By: #### P TT, PT, CK, HS TROP, BMP, SCAN CBC, BNP #### [address] Hematocrit (Bld) [Volume fraction] 41.5 % Normal 34.0-46.4 [facility] Comment on above: Performed By: #### P TT, PT, CK, HS TROP, BMP, SCAN CBC, BNP #### [address] Hemoglobin (Bld) [Mass/Vol] 14.5 g/dL Normal 11.8-15.4 [facility] Comment on above: Performed By: #### P TT, PT, CK, HS TROP, BMP, SCAN CBC, BNP #### [address] Lymphocytes (Bld) [#/Vol] 2.6 10*3/uL Normal 1.00-4.8 [facility] Comment on above: Performed By: #### P TT, PT, CK, HS TROP, BMP, SCAN CBC, BNP #### [address] Lymphocytes/100 WBC (Bld) 33.6 % Normal . [facility] Comment on above: Performed By: #### P TT, PT, CK, HS TROP, BMP, SCAN CBC, BNP #### [address] MCH (RBC) [Entitic mass] 32.3 pg Normal 24.7-34.3 [facility] Comment on above: Performed By: #### P TT, PT, CK, HS TROP, BMP, SCAN CBC, BNP #### [address] MCV (RBC) [Entitic vol] 92.5 fL Normal 80-100 [facility] Comment on above: Performed By: #### P TT, PT, CK, HS TROP, BMP, SCAN CBC, BNP #### [address] Mean Corpuscular HGB Conc 35.0 g/dL Normal 32.0-35.0 [facility] Comment on above: Performed By: #### P TT, PT, CK, HS TROP, BMP, SCAN CBC, BNP #### [address] Monocytes (Bld) [#/Vol] 0.5 10*3/uL Normal 0.0-0.8 [facility] Comment on above: Performed By: #### P TT, PT, CK, HS TROP, BMP, SCAN CBC, BNP #### [address] Monocytes/100 WBC (Bld) 6.5 % Normal . [facility] Comment on above: Performed By: #### P TT, PT, CK, HS TROP, BMP, SCAN CBC, BNP #### [address] Neutrophils (Bld) [#/Vol] 4.5 10*3/uL Normal 1.8-7.7 [facility] Comment on above: Performed By: #### P TT, PT, CK, HS TROP, BMP, SCAN CBC, BNP #### [address] Neutrophils/100 WBC (Bld) 57.6 % Normal . [facility] Comment on above: Performed By: #### P TT, PT, CK, HS TROP, BMP, SCAN CBC, BNP #### [place] [address] [place] NRBC% 0.1 /100{WBC} Normal 0-0.5 [facility] Comment on above: Performed By: #### P TT, PT, CK, HS TROP, BMP, SCAN CBC, BNP #### [address] Platelet Estimate Normal Normal Normal [facility] Comment on above: Result Comment: PERF ORMED BY: [place] [address] PATHOLOGIST [employer] MAINTENANCE SUPERVISOR MOHAN KENNEDY M.D. Performed By: #### P TT, PT, CK, HS TROP, BMP, SCAN CBC, BNP #### [address] Platelet mean volume (Bld) [Entitic vol] 9.8 fL Normal 6.3-10.7 [facility] Comment on above: Performed By: #### P TT, PT, CK, HS TROP, BMP, SCAN CBC, BNP #### [address] Platelets (Bld) [#/Vol] 230 10*3/uL Normal 150-450 [facility] Comment on above: Performed By: #### P TT, PT, CK, HS TROP, BMP, SCAN CBC, BNP #### [address] RBC (Bld) [#/Vol] 4.49 10*6/uL Normal 3.60-5.00 [facility] Comment on above: Performed By: #### P TT, PT, CK, HS TROP, BMP, SCAN CBC, BNP #### [address] Stomatocytes Slight Normal [facility] Comment on above: Performed By: #### P TT, PT, CK, HS TROP, BMP, SCAN CBC, BNP #### [address] Toxic Vacuolation Slight Normal [facility] Comment on above: Performed By: #### P TT, PT, CK, HS TROP, BMP, SCAN CBC, BNP #### [address] WBC (Bld) [#/Vol] 7.8 10*3/uL Normal 3.8-11.6 [facility] Comment on above: Performed By: #### P TT, PT, CK, HS TROP, BMP, SCAN CBC, BNP #### [address] [place] [address] [place] Serum or plasma anion gap de terminationOrdered By: Wade Cook on 10-31-2022 Anion gap [Moles/Vol] 12.4 mmol/L 6.0-15.0 [facility] Sodium [Moles/volume] in Ser um or PlasmaOrdered By: Wade Cook on 10-31-2022 Sodium [Moles/Vol] 142 mmol/L 136-145 [facility] Toxic leukocyte vacuolation detectionOrdered By: Wade Cook on 10-31-2022 Leukocyte toxic vacuoles LM Ql (Bld) Slight [facility] Troponin I High Sensitivityo n 10-31-2022 Troponin I High Sensitivity 5.6 pg/mL Normal 0.0-15.0 [facility] Comment on above: Result Comment: PERF ORMED BY: [place] [address] PATHOLOGIST [employer] MAINTENANCE SUPERVISOR MOHAN KENNEDY M.D. Performed By: #### P TT, PT, CK, HS TROP, BMP, SCAN CBC, BNP #### [facility] [address] [place] [address] Troponin I.cardiac [Mass/vol ume] in Serum or Plasma by Detection limit <= 0.01 ng/Ordered By: Wade Cook on 10-31-2022 Troponin I.cardiac DL <= 0.01 ng/mL [Mass/Vol] 5.6 pg/mL 0.0-15.0 [facility] Urea nitrogen [Mass/volume] in Serum or PlasmaOrdered By: Wade Cook on 10-31-2022 Urea nitrogen [Mass/Vol] 6 mg/dL 725 [facility] WBC Auto (Bld) [#/Vol]Ordere d By: Wade Cook on 10-31-2022 WBC (Bld) [#/Vol] 7.8 10*3/uL 3.8-11.6 [facility] XR chest 2V*on 10-31-2022 XR chest 2V* [facility] Main [place] [address] [place] [id number] XRay Report Signed Patient: Eliane Gutierrez MR#: [id number] : 1975 Acct:[id number] Age/Sex: 47 / F ADM Date: 10/31/22 Loc: ER Room: Type: [facility] ER Attending Dr: Copies to: Wade Cook MD Ordering Provider: Wade Cook MD Date of Service: 10/31/22 XR/XR chest 2V*: Chest Pain Chest 2 views CLINICAL HISTORY: Midsternal chest pain today. COMPARISON: None FINDINGS: Heart normal in size. Lungs are clear. No free air. XR/XR chest 2V* IMPRESSION: NO ACUTE CARDIOPULMONARY ABNORMALITY. Impression dictated by: Link Peña Jr., D.OClint10/31/2022 8:39 PM Dictation Location: [employer]--15 Transcribed By: [facility] 10/31/222038 Dictated By: Link Peña Jr, DO 10/31/222038 Signed By: 10/31/222038 [facility] COVID + FLU Quick Testingon 07-31-2022 SARS-CoV-2 (COVID-19) RNA SHELBY+probe Ql (Unsp spec) Negative [facility] Other COVID + FLU Quick Testing Negative [facility] Other MRI BRAIN WO/W IVCONon 05-23 [facility] SARS-CoV-2 (COVID-19) RNA NA A+probe Ql (Resp)on 01-17-2022 SARS-CoV-2 (COVID-19) RNA SHELBY+probe Ql (Unsp spec) Positive [facility] Other SARS-CoV-2 (COVID-19) RNA NA A+probe Ql (Resp)on 12-09-2021 SARS-CoV-2 (COVID-19) RNA SHELBY+probe Ql (Unsp spec) Negative [facility] Other COVID Quick Testingon 2020 Result Negative [facility] Other COVID Quick Testingon 2020 Result Negative [facility] Other COVID Quick Testingon 2020 Result Negative [facility] Other XR FINGER LEFT (MIN 2 VIEWS) on 05-20-2019 XR FINGER LEFT (MIN 2 VIEWS) EXAMINATION: THREE XRAY VIEWS OF THE LEFT FINGERS 05/19/2019 10:38 pm COMPARISON: None. HISTORY: ORDERING SYSTEM PROVIDED HISTORY: large laceration to palmar aspect of ring finger TECHNOLOGIST PROVIDED HISTORY: large laceration to palmar aspect of ring finger FINDINGS: 3 images of the left fingers were provided. There is no fracture or foreign body IMPRESSION: No fracture or foreign body Interpreted by: Hoang Murray MD Signed by: Hoang Murray MD 05/19/19 Final result Normal [facility] XR FINGER LEFT (MIN 2 VIEWS) Ordered By: Nurys Fernández on 05-19-2019 No fracture or forei gn body [facility]: EXAMINATION: THREE X RAY VIEWS OF THE LEFT FINGERS 05/19/2019 10:38 pm COMPARISON: None. HISTORY: ORDERING SYSTEM PROVIDED HISTORY: large laceration to palmar aspect of ring finger TECHNOLOGIST PROVIDED HISTORY: large laceration to palmar aspect of ring finger FINDINGS: 3 images of the left fingers were provided. There is no fracture or foreign body [employer] Work Phone: [place], [place] Incoming Radiant Results From [employer]/[facility] - 05/19/2019 10:57 PM EST EXAMINATION: THREE XRAY VIEWS OF THE LEFT FINGERS 05/19/2019 10:38 pm COMPARISON: None. HISTORY: ORDERING SYSTEM PROVIDED HISTORY: large laceration to palmar aspect of ring finger TECHNOLOGIST PROVIDED HISTORY: large laceration to palmar aspect of ring finger FINDINGS: 3 images of the left fingers were provided. There is no fracture or foreign body IMPRESSION: No fracture or foreign body [facility] Work Phone: Cult,Urineon 05-04-2019 Cult,Urine Specimen Description .CLEAN CATCH URINE Special Requests NOT REPORTED Culture NO SIGNIFICANT GROWTH Report Status FINAL 05/04/2019 [facility] Comment on above: Performed By: #### C DP, BMP, BNP, TROPI #### [facility] [address] [place] [address] Advertising Layout Worker: Bryan Hernandez MD CBCon 05-02-2019 Erythrocyte distribution width (RBC) [Ratio] 12.7 % Normal 11.8-14.4 [facility] Comment on above: Performed By: #### C DP, BMP, BNP, TROPI #### [facility] [address] [place] [id number] Advertising Layout Worker: Bryan Hernandez MD Hematocrit (Bld) [Volume fraction] 47.3 % High 36.3-47.1 [facility] Comment on above: Performed By: #### C DP, BMP, BNP, TROPI #### [address] [place] [id number] Advertising Layout Worker: Bryan Hernandez MD Hemoglobin (Bld) [Mass/Vol] 15.6 g/dL High 11.9-15.1 [facility] Comment on above: Performed By: #### C DP, BMP, BNP, TROPI #### [address] [place] [address] Advertising Layout Worker: Bryan Hernandez MD MCH (RBC) [Entitic mass] 31.8 pg Normal 25.2-33.5 [facility] Comment on above: Performed By: #### C DP, BMP, BNP, TROPI #### [address] [place] [id number] Advertising Layout Worker: Bryan Hernandez MD MCHC (RBC) [Mass/Vol] 33.0 g/dL Normal 28.4-34.8 [facility] Comment on above: Performed By: #### C DP, BMP, BNP, TROPI #### [address] [place] [id number] Advertising Layout Worker: Bryan Hernandez MD MCV (RBC) [Entitic vol] 96.3 fL Normal 82.6-102.9 [facility] Comment on above: Performed By: #### C DP, BMP, BNP, TROPI #### [address] [place] [address] Advertising Layout Worker: Bryan Hernandez MD NRBC Automated 0.0 per 100 WBC Normal 0.0 [facility] Comment on above: Performed By: #### C DP, BMP, BNP, TROPI #### [facility] [address] [place] [address] Advertising Layout Worker: Bryan Hernandez MD Platelet mean volume (Bld) [Entitic vol] 11.2 fL Normal 8.1-13.5 [facility] Comment on above: Performed By: #### C DP, BMP, BNP, TROPI #### [facility] [address] [place], [facility]83 Advertising Layout Worker: Bryan Hernandez MD Platelets (Bld) [#/Vol] 185 10*3/uL Normal 138-453 [facility] Comment on above: Performed By: #### C DP, BMP, BNP, TROPI #### [address] [place], [facility]83 Advertising Layout Worker: Bryan Hernandez MD RBC (Bld) [#/Vol] 4.91 10*6/uL Normal 3.95-5.11 [facility] Comment on above: Performed By: #### C DP, BMP, BNP, TROPI #### [address] [place] [id number] Advertising Layout Worker: Bryan Hernandez MD WBC (Bld) [#/Vol] 5.9 10*3/uL Normal 3.5-11.3 [facility] Comment on above: Performed By: #### C DP, BMP, BNP, TROPI #### [facility] [address] [place], [facility]83 Advertising Layout Worker: Bryan Hernandez MD CBCOrdered By: Nurys Bains on on 05-02-2019 Erythrocyte distribution width (RBC) [Ratio] 12.7 % 11.8 - 14.4 % [facility] Work Phone: Hematocrit (Bld) [Volume fraction] 47.3 % High 36.3 - 47.1 % [employer] Phone: Hemoglobin (Bld) [Mass/Vol] 15.6 g/dL High 11.9 - 15.1 g/dL [employer] Phone: Interpretation and review of laboratory results Abnormal [employer] Phone: MCH (RBC) [Entitic mass] 31.8 pg 25.2 - 33.5 pg [employer] Phone: MCHC (RBC) [Mass/Vol] 33.0 g/dL 28.4 - 34.8 g/dL [employer] Phone: MCV (RBC) [Entitic vol] 96.3 fL 82.6 - 102.9 fL [employer] Phone: NRBC Automated 0.0 0.0 per 100 WBC [employer] Phone: Platelet mean volume (Bld) [Entitic vol] 11.2 fL 8.1 - 13.5 fL [employer] Phone: Platelets (Bld) [#/Vol] 185 10*3/uL [employer] Phone: RBC (Bld) [#/Vol] 4.91 10*6/uL 3.95 - 5.11 m/uL [employer] Phone: WBC (Bld) [#/Vol] 5.9 10*3/uL [employer] Phone: CT HEAD WO CONTRASTon 2018 CT HEAD WO CONTRAST EXAMINATION: CT OF THE HEAD WITHOUT CONTRAST 05/02/2019 12:27 pm TECHNIQUE: CT of the head was performed without the administration of intravenous contrast. Dose modulation, iterative reconstruction, and/or weight based adjustment of the mA/kV was utilized to reduce the radiation dose to as low as reasonably achievable. COMPARISON: None. HISTORY: ORDERING SYSTEM PROVIDED HISTORY: syncope with fall TECHNOLOGIST PROVIDED HISTORY: syncope with fall Is the patient ?->No FINDINGS: BRAIN/VENTRICLES: There is no acute intracranial hemorrhage, mass effect or midline shift. No abnormal extra-axial fluid collection. The christine-white differentiation is maintained without evidence of an acute infarct. There is no evidence of hydrocephalus. ORBITS: The visualized portion of the orbits demonstrate no acute abnormality. SINUSES: The visualized paranasal sinuses and mastoid air cells demonstrate no acute abnormality. SOFT TISSUES/SKULL: No acute abnormality of the visualized skull or soft tissues. IMPRESSION: No acute intracranial abnormality. Interpreted by: Az Portillo MD Signed by: Az Portillo MD 05/02/19 Final result Normal [facility] CT Head WO ContrastOrdered B y: Nurys Fernández on 05-02-2019 No acute intracrania l abnormality. [employer] Phone: EXAMINATION: CT OF T HE HEAD WITHOUT CONTRAST 05/02/2019 12:27 pm TECHNIQUE: CT of the head was performed without the administration of intravenous contrast. Dose modulation, iterative reconstruction, and/or weight based adjustment of the mA/kV was utilized to reduce the radiation dose to as low as reasonably achievable. COMPARISON: None. HISTORY: ORDERING SYSTEM PROVIDED HISTORY: syncope with fall TECHNOLOGIST PROVIDED HISTORY: syncope with fall Is the patient ?->No FINDINGS: BRAIN/VENTRICLES: There is no acute intracranial hemorrhage, mass effect or midline shift. No abnormal extra-axial fluid collection. The christine-white differentiation is maintained without evidence of an acute infarct. There is no evidence of hydrocephalus. ORBITS: The visualized portion of the orbits demonstrate no acute abnormality. SINUSES: The visualized paranasal sinuses and mastoid air cells demonstrate no acute abnormality. SOFT TISSUES/SKULL: No acute abnormality of the visualized skull or soft tissues. [employer] Phone: Austni, Mhpn Incoming Radiant Results From [facility]/HOLLRs - 05/02/2019 12:36 PM EST EXAMINATION: CT OF THE HEAD WITHOUT CONTRAST 05/02/2019 12:27 pm TECHNIQUE: CT of the head was performed without the administration of intravenous contrast. Dose modulation, iterative reconstruction, and/or weight based adjustment of the mA/kV was utilized to reduce the radiation dose to as low as reasonably achievable. COMPARISON: None. HISTORY: ORDERING SYSTEM PROVIDED HISTORY: syncope with fall TECHNOLOGIST PROVIDED HISTORY: syncope with fall Is the patient ?->No FINDINGS: BRAIN/VENTRICLES: There is no acute intracranial hemorrhage, mass effect or midline shift. No abnormal extra-axial fluid collection. The christine-white differentiation is maintained without evidence of an acute infarct. There is no evidence of hydrocephalus. ORBITS: The visualized portion of the orbits demonstrate no acute abnormality. SINUSES: The visualized paranasal sinuses and mastoid air cells demonstrate no acute abnormality. SOFT TISSUES/SKULL: No acute abnormality of the visualized skull or soft tissues. IMPRESSION: No acute intracranial abnormality. [facility] Work Phone: Comp Metabolic Profon 2018 AST [Catalytic activity/Vol] 32 U/L High <32 [facility] Comment on above: Performed By: #### C DP, BMP, BNP, TROPI #### [facility] [address] [place] [address] Advertising Layout Worker: Bryan Hernandez MD (cont.) Normal [facility] Comment on above: Result Comment: Aver age GFR for 40-49 years old: 99 mL/min/1.73sq m Chronic Kidney Disease: <60 mL/min/1.73sq m Kidney failure: <15 mL/min/1.73sq m eGFR calculated using average adult body mass. Additional eGFR calculator available at: http://www.DrDoctor.[employer]/multiple_crcl_2012.htm Performed By: #### C DP, BMP, BNP, TROPI #### [facility] [address] [place] [address] Advertising Layout Worker: Bryan Hernandez MD Albumin [Mass/Vol] 4.2 g/dL Normal 3.5-5.2 [facility] Comment on above: Performed By: #### C DP, BMP, BNP, TROPI #### [facility] [address] [place] [address] Advertising Layout Worker: Bryan Hernandez MD Albumin/Globulin [Mass ratio] 1.4 {ratio} Normal 1.0-2.5 [facility] Comment on above: Performed By: #### C DP, BMP, BNP, TROPI #### [facility] [address] [place] [address] Advertising Layout Worker: Bryan Hernandez MD Alkaline Phos 90 U/L Normal 35-104 [facility] Comment on above: Performed By: #### C DP, BMP, BNP, TROPI #### [facility] [address] [place] [address] Advertising Layout Worker: Bryan Hernandez MD ALT [Catalytic activity/Vol] 15 U/L Normal 5-33 [facility] Comment on above: Performed By: #### C DP, BMP, BNP, TROPI #### [facility] [address] [place] [address] Advertising Layout Worker: Bryan Hernandez MD Anion gap [Moles/Vol] 15 mmol/L Normal 9-17 [facility] Comment on above: Performed By: #### C DP, BMP, BNP, TROPI #### [facility] [address] [place] [id number] Advertising Layout Worker: Bryan Hernandez MD Bilirubin Ql (U) 0.18 mg/dL Low 0.3-1.2 [facility] Comment on above: Performed By: #### C DP, BMP, BNP, TROPI #### [facility] [address] [place] [id number] Advertising Layout Worker: Bryan Hernandez MD BUN/CRE Ratio 8 Low 9-20 [facility] Comment on above: Performed By: #### C DP, BMP, BNP, TROPI #### [facility] [address] [place] [address] Advertising Layout Worker: Bryan Hernandez MD Calcium [Mass/Vol] 9.3 mg/dL Normal 8.6-10.4 [facility] Comment on above: Performed By: #### C DP, BMP, BNP, TROPI #### [facility] [address] [place] [address] Advertising Layout Worker: Bryan Hernandez MD Chloride [Moles/Vol] 97 mmol/L Low 98-107 [facility] Comment on above: Performed By: #### C DP, BMP, BNP, TROPI #### [facility] [address] [place], [place] [id number] Advertising Layout Worker: Bryan Hernandez MD CO2 [Moles/Vol] 25 mmol/L Normal 20-31 [facility] Comment on above: Performed By: #### C DP, BMP, BNP, TROPI #### [facility] [address] [place], [place] [id number] Advertising Layout Worker: Bryan Hernandez MD Creatinine [Mass/Vol] 0.92 mg/dL High 0.50-0.90 [facility] Comment on above: Performed By: #### C DP, BMP, BNP, TROPI #### [facility] [address] [place], [place] [id number] Advertising Layout Worker: Bryan Hernandez MD GFR, Amer >60 Normal >60 [facility] Comment on above: Performed By: #### C DP, BMP, BNP, TROPI #### [facility] [address] [place], [place] [id number] Advertising Layout Worker: Bryan Hernandez MD GFR,non Amer >60 Normal >60 [facility] Comment on above: Performed By: #### C DP, BMP, BNP, TROPI #### [facility] [address] [place], [place] [id number] Advertising Layout Worker: Bryan Hernandez MD Glucose [Mass/Vol] 119 mg/dL High 70-99 [facility] Comment on above: Performed By: #### C DP, BMP, BNP, TROPI #### [facility] [address] [place] [address] Advertising Layout Worker: Bryan Hernandez MD Potassium [Moles/Vol] 4.6 mmol/L Normal 3.7-5.3 [facility] Comment on above: Performed By: #### C DP, BMP, BNP, TROPI #### [facility] [address] [place] [address] Advertising Layout Worker: Bryan Hernandez MD Protein [Mass/Vol] 7.2 g/dL Normal 6.4-8.3 [facility] Comment on above: Performed By: #### C DP, BMP, BNP, TROPI #### [facility] [address] [place], [place] [id number] Advertising Layout Worker: Bryan Hernandez MD Sodium [Moles/Vol] 137 mmol/L Normal 135-144 [facility] Comment on above: Performed By: #### C DP, BMP, BNP, TROPI #### [facility] [address] [place] [address] Advertising Layout Worker: Bryan Hernandez MD Staging: Normal [facility] Comment on above: Result Comment: Stag e 1: Some kidney damage normal GFR Stage 2: Mild kidney damage GFR 60-89 Stage 3: Moderate kidney damage GFR 30-59 Stage 4: Severe kidney damage GFR 15-29 Stage 5: Severe kidney damage GFR <15 ESRD - chronic treatment by dialysis or transplant Performed By: #### C DP, BMP, BNP, TROPI #### [address] [place], [place] [id number] Advertising Layout Worker: Bryan Hernandez MD Urea nitrogen [Mass/Vol] 7 mg/dL Normal 6-20 [facility] Comment on above: Performed By: #### C DP, BMP, BNP, TROPI #### [facility] [address] [place] [address] Advertising Layout Worker: Bryan Hernandez MD [facility] Met[facility] lOrdered By: Nurys Fernández on 05-02-2019 Albumin [Mass/Vol] 4.2 g/dL 3.5 - 5.2 g/dL [facility] Work Phone: Albumin/Globulin [Mass ratio] 1.4 {ratio} [facility] Work Phone: ALP [Catalytic activity/Vol] 90 U/L 35 - 104 U/L [employer] Work Phone: ALT [Catalytic activity/Vol] 15 U/L 5 - 33 U/L [employer] Phone: Anion gap [Moles/Vol] 15 mmol/L 9 - 17 mmol/L [employer] Work Phone: AST [Catalytic activity/Vol] 32 U/L High <32 [employer] Work Phone: Bilirubin [Mass/Vol] 0.18 mg/dL Low 0.3 - 1 .2 mg/dL [employer] Phone: Bun/Cre Ratio 8 Low [employer] Work Phone: Calcium [Mass/Vol] 9.3 mg/dL 8.6 - 10. 4 mg/dL [employer] Phone: Chloride [Moles/Vol] 97 mmol/L Low 98 - 10 7 mmol/L [employer] Work Phone: CO2 [Moles/Vol] 25 mmol/L 20 - 31 mmol/L [employer] Work Phone: Creatinine [Mass/Vol] 0.92 mg/dL High 0.5 - 0.9 mg/dL [employer] Phone: GFR >60 >60 mL/min [employer] Work Phone: GFR Comment [employer] Phone: Comment on above: Average GFR for 40-4 9 years old: 99 mL/min/1.73sq m Chronic Kidney Disease: <60 mL/min/1.73sq m Kidney failure: <15 mL/min/1.73sq m eGFR calculated using average adult body mass. Additional eGFR calculator available at: http://www.DrDoctor.[employer]/multiple_crcl_2012.htm GFR Non- >60 >60 mL/min [employer] Work Phone: GFR Staging [employer] Phone: Comment on above: Stage 1: Some kidney damage normal GFR Stage 2: Mild kidney damage GFR 60-89 Stage 3: Moderate kidney damage GFR 30-59 Stage 4: Severe kidney damage GFR 15-29 Stage 5: Severe kidney damage GFR <15 ESRD - chronic treatment by dialysis or transplant Glucose [Mass/Vol] 119 mg/dL High 70 - 99 mg/dL [employer] Phone: Interpretation and review of laboratory results Abnormal [employer] Phone: Potassium [Moles/Vol] 4.6 mmol/L 3.7 - 5.3 mmol/L [employer] Phone: Protein [Mass/Vol] 7.2 g/dL 6.4 - 8.3 g/dL [employer] Phone: Sodium [Moles/Vol] 137 mmol/L 135 - 144 mmol/L [employer] Phone: Urea nitrogen [Mass/Vol] 7 mg/dL 6 - 20 mg/dL [employer] Phone: Flu A/B Ag Detectionon 05-02 Flu A/B Ag Detection Specimen Descriptio n .NASOPHARYNGEAL SWAB Special Requests NOT REPORTED Direct Exam Presumptive negative for the presence of Influenza A and Influenza B antigen. PCR confirmation of negative results is recommended, since the antigen present in the specimen may be below the detection limit of the test. Report Status FINAL 05/02/2019 Normal [facility] Comment on above: Performed By: #### C DP, BMP, BNP, TROPI #### [facility] [address] [place] [address] Advertising Layout Worker: Bryan Hernandez MD Lactic Acidon 05-02-2019 Lactate [Moles/Vol] 3.2 mmol/L High 0.5-2.2 [facility] Comment on above: Performed By: #### C DP, BMP, BNP, TROPI #### [facility] [address] [place] [address] Advertising Layout Worker: Bryan Hernandez MD Lactate [Moles/Vol] NOT REPORTED Normal 0.7-2.1 [facility] Comment on above: Performed By: #### C DP, BMP, BNP, TROPI #### [facility] [address] [place] [address] Advertising Layout Worker: Bryan Hernandez MD Lactic Acid, PlasmaOrdered B y: Nurysterell Fernández on 05-02-2019 Interpretation and review of laboratory results Abnormal [facility] Phone: Lactate [Moles/Vol] 3.2 mmol/L High 0.5 - 2. 2 mmol/L [facility] Phone: Lactic Acid, Whole Blood NOT REPORTED 0.7 - 2.1 mmol/L [facility] Phone: Magnesiumon 05-02-2019 Magnesium [Mass/Vol] 2.0 mg/dL Normal 1.6-2.6 [facility] Comment on above: Performed By: #### C DP, BMP, BNP, TROPI #### [facility] [address] [place] [address] Advertising Layout Worker: Bryan Hernandez MD MagnesiumOrdered By: Nurys cronin on 05-02-2019 Magnesium [Mass/Vol] 2.0 mg/dL 1.6 - 2 .6 mg/dL [facility] Phone: Microscopic UrinalysisOrdere d By: Nurys Fernández on 05-02-2019 - [employer] Phone: Amorphous, UA NOT REPORTED None [employer] [facility] Work Phone: Bacteria, UA TRACE Abnormal None [facility] Work Phone: Casts UA NOT REPORTED /LPF [facility] Work Phone: Crystals UA NOT REPORTED None /HPF [facility] [employer] Work Phone: Epithelial Cells UA 10 TO 20 [employer] Phone: Interpretation and review of laboratory results Abnormal [employer] Phone: Mucus, UA NOT REPORTED None [employer] Phone: Other Observations UA NOT REPORTED NOT REQ. M [facility] Phone: RBC, UA 0 TO 2 [employer] Phone: Renal Epithelial, Urine NOT REPORTED 0 /HPF [facility] Phone: Trichomonas, UA NOT REPORTED None [employer] Work Phone: WBC, UA 5 TO 10 [facility] Phone: Yeast, UA NOT REPORTED None [employer] Phone: Rapid influenza A/B antigens Ordered By: Nurys Fernández on 05-02-2019 Direct Exam Presumptive negative for the presence of Influenza A and Influenza B antigen. PCR confirmation of negative results is recommended, since the antigen present in the specimen may be below the detection limit of the test. [employer] Phone: Special Requests NOT REPORTED [employer] Phone: Specimen Description .NASOPHARYNGEAL SWAB [facility] Phone: Troponinon 05-02-2019 Troponin I.cardiac [Mass/Vol] ng/mL Normal <0.03 [facility] Comment on above: Result Comment: Trop onin T results cannot be compared to Troponin-I results. Performed By: #### C DP, BMP, BNP, TROPI #### [facility] [address] [place] [address] Advertising Layout Worker: Bryan Hernandez MD Troponin I.cardiac [Mass/Vol] Normal [facility] Comment on above: Result Comment: Refe rence Range: <0.03 Within reference range. 0.03-0.09 Possible myocardial damage. Repeat at appropriate intervals to rule out chronic elevation. >= 0.10 Indicative of myocardial damage. Patients with high levels of Biotin oral intake (i.e >5mg/day) may have falsely decreased Troponin T levels. Samples collected within 8 hours of biotin intake may require additional information for diagnosis. Performed By: #### C DP, BMP, BNP, TROPI #### [facility] [address] [place] [address] Advertising Layout Worker: Bryan Hernandez MD Troponin I.cardiac [Mass/Vol] NOT REPORTED Normal 0-14 [facility] Comment on above: Performed By: #### C DP, BMP, BNP, TROPI #### [facility] [address] [place] [address] Advertising Layout Worker: Bryan Hernandez MD TroponinOrdered By: Nurys hughes on 05-02-2019 Troponin Interp [facility] Work Phone: Comment on above: Reference Range: <0.03 Within reference range. 0.03-0.09 Possible myocardial damage. Repeat at appropriate intervals to rule out chronic elevation. >= 0.10 Indicative of myocardial damage. Patients with high levels of Biotin oral intake (i.e >5mg/day) may have falsely decreased Troponin T levels. Samples collected within 8 hours of biotin intake may require additional information for diagnosis. Troponin T <0.03 <0.03 ng/mL [facility] [employer] Phone: Comment on above: Troponin T results c annot be compared to Troponin-I results. Troponin, High Sensitivity NOT REPORTED 0 - 14 ng/L [facility] Work Phone: UA w/Reflex Cultureon 2018 Acetoacetic Acid,Ur Negative Normal NEG [facility] Comment on above: Performed By: #### C DP, BMP, BNP, TROPI #### [address] [place] [address] Advertising Layout Worker: Bryan Hernandez MD Bilirubin, SemiQt,Ur Negative Normal NEG [facility] Comment on above: Performed By: #### C DP, BMP, BNP, TROPI #### [facility] [address] [place], [place] [id number] Advertising Layout Worker: Bryan Hernandez MD Color (U) YELLOW Normal YEL [facility] Comment on above: Performed By: #### C DP, BMP, BNP, TROPI #### [facility] [address] [place], [place] [id number] Advertising Layout Worker: Bryan Hernandez MD Glucose Ql (U) Negative Normal NEG [facility] in Hospital Comment on above: Performed By: #### C DP, BMP, BNP, TROPI #### [facility] [address] [place], [place] [id number] Advertising Layout Worker: Bryan Hernandez MD Hemoglobin, Ur Negative Normal NEG [facility] Comment on above: Performed By: #### C DP, BMP, BNP, TROPI #### [address] [place], [facility]83 Advertising Layout Worker: Bryan Hernandez MD Leukocyte esterase Test strip Ql (U) SMALL Abnormal NEG [facility] Comment on above: Performed By: #### C DP, BMP, BNP, TROPI #### [address] [place], [facility]83 Advertising Layout Worker: Bryan Hernandez MD Nitrite,Ur Negative Normal [facility] Comment on above: Performed By: #### C DP, BMP, BNP, TROPI #### [address] [place], [facility]83 Advertising Layout Worker: Bryan Hernandez MD pH (U) 6.0 [pH] Normal 5.0-9.0 [facility] Comment on above: Performed By: #### C DP, BMP, BNP, TROPI #### [address] [place], [place] [id number] Advertising Layout Worker: Bryan Hernandez MD Protein Ql (U) Negative Normal NEG [facility] in Hospital Comment on above: Performed By: #### C DP, BMP, BNP, TROPI #### [facility] [address] [place], [place] [id number] Advertising Layout Worker: Bryan Hernandez MD Specific gravity (U) [Rel density] 1.025 High 1.010-1.02 0 [facility] Comment on above: Performed By: #### C DP, BMP, BNP, TROPI #### [facility] [address] [place], [place] [id number] Advertising Layout Worker: Bryan Hernandez MD Turbidity SLIGHTLY CLOUDY Abnormal CLEAR [facility] Comment on above: Performed By: #### C DP, BMP, BNP, TROPI #### [facility] [address] [place], [place] [id number] Advertising Layout Worker: Bryan Hernandez MD Urobilinogen,Ur Normal Normal NORM [facility] Comment on above: Performed By: #### C DP, BMP, BNP, TROPI #### [facility] [address] [place], [place] [id number] Advertising Layout Worker: Bryan Hernandez MD Comment NOT REPORTED Normal [facility] Comment on above: Performed By: #### C DP, BMP, BNP, TROPI #### [facility] [address] [place], [place] [id number] Advertising Layout Worker: Bryan Hernandez MD Urinalysis Reflex to Culture Ordered By: Nurys Fernández on 05-02-2019 Bilirubin Urine Negative NEGATIVE [facility] Work Phone: Color, UA YELLOW YELLOW [facility] Work Phone: Glucose, Ur Negative NEGATIVE [facility] Work Phone: Interpretation and review of laboratory results Abnormal [facility] Work Phone: Ketones Ql (U) Negative NEGATIVE [facility] Work Phone: Leukocyte esterase Test strip Ql (U) SMALL Abnormal NEGATIVE [facility] Work Phone: Nitrite, Urine Negative NEGATIVE [facility] Work Phone: pH, UA 6.0 [facility] [employer] Work Phone: Protein, UA Negative NEGATIVE [facility] [employer] Work Phone: Specific [place], UA 1.025 High [facility] [employer] Work Phone: Turbidity UA SLIGHTLY CLOUDY Abnormal CLEAR [facility] Work Phone: Urinalysis Comments NOT REPORTED [facility] [employer] Work Phone: Urine Hgb Negative NEGATIVE [facility] [employer] Work Phone: Urobilinogen, Urine Normal Normal [facility] [employer] Work Phone: Urinalysis,Microon 9 ----- Normal [facility] Comment on above: Performed By: #### C DP, BMP, BNP, TROPI #### [facility] [address] [place] [address] [place] [address] Advertising Layout Worker: Bryan Hernandez MD Bacteria LM.HPF (Urine sed) [#/Area] TRACE Abnormal NONE [facility] Comment on above: Performed By: #### C DP, BMP, BNP, TROPI #### [address] [place] [address] Advertising Layout Worker: Bryan Hernandez MD Epithelial cells LM.HPF (Urine sed) [#/Area] 10 TO 20 Normal 0-25 [facility] Comment on above: Performed By: #### C DP, BMP, BNP, TROPI #### [facility] [address] [place] [address] Advertising Layout Worker: Bryan Hernandez MD RBC (U) [#/Vol] 0 TO 2 Normal 0-2 [facility] Comment on above: Performed By: #### C DP, BMP, BNP, TROPI #### [address] [place] [address] Advertising Layout Worker: Bryan Hernandez MD WBC (U) [#/Vol] 5 TO 10 Normal 0-5 [facility] Comment on above: Performed By: #### C DP, BMP, BNP, TROPI #### [facility] [address] [place] [address] Advertising Layout Worker: Bryan Hernandez MD Amorphous sediment LM Ql (Urine sed) NOT REPORTED Normal [facility] Comment on above: Performed By: #### C DP, BMP, BNP, TROPI #### [facility] [address] [place] [address] Advertising Layout Worker: Bryan Hernandez MD Casts LM.LPF (Urine sed) [#/Area] NOT REPORTED Normal [facility] Comment on above: Performed By: #### C DP, BMP, BNP, TROPI #### [address] [place] [address] Advertising Layout Worker: Bryan Hernandez MD Crystals LM Nom (Urine sed) NOT REPORTED Normal [facility] Comment on above: Performed By: #### C DP, BMP, BNP, TROPI #### [address] [place] [address] Advertising Layout Worker: Bryan Hernandez MD Epithelial, Renal NOT REPORTED Normal 0 [facility] Comment on above: Performed By: #### C DP, BMP, BNP, TROPI #### [facility] [address] [place] [address] Advertising Layout Worker: Bryan Hernandez MD Mucus Strands NOT REPORTED Normal [facility] Comment on above: Performed By: #### C DP, BMP, BNP, TROPI #### [facility] [address] [place] [address] Advertising Layout Worker: Bryan Hernandez MD Other Observations NOT REPORTED Normal [facility] Comment on above: Performed By: #### C DP, BMP, BNP, TROPI #### [facility] [address] [place] [id number] Advertising Layout Worker: Bryan Hernandez MD Trichomonas NOT REPORTED Normal NONE [facility] Comment on above: Performed By: #### C DP, BMP, BNP, TROPI #### [facility] [address] [place] [address] Advertising Layout Worker: Bryan Hernandez MD Yeast LM Ql (Urine sed) NOT REPORTED Normal NONE [facility] Comment on above: Performed By: #### C DP, BMP, BNP, TROPI #### [facility] [address] [place] [address] Advertising Layout Worker: Bryan Hernandez MD XR CHEST PORTABLEon 05-02-20 19 XR CHEST PORTABLE EXAMINATION: ONE XRAY VIEW OF THE CHEST 05/02/2019 12:25 pm COMPARISON: 01/14/2019 HISTORY: ORDERING SYSTEM PROVIDED HISTORY: syncope TECHNOLOGIST PROVIDED HISTORY: syncope FINDINGS: Single portable frontal view of the chest is submitted for review. The cardiac silhouette is normal in size. Lung parenchyma is clear without focal airspace consolidation, sizeable pleural effusion, or pneumothorax. Trachea is midline. Visualized osseous structures and soft tissues are grossly intact. IMPRESSION: No acute cardiopulmonary pathology. Interpreted by: Az Portillo MD Signed by: Az Portillo MD 05/02/19 Final result Normal [facility] XR CHEST PORTABLEOrdered By: Nurys Fernández on 05-02-2019 No acute cardiopulmo nary pathology. [employer] Phone: EXAMINATION: ONE XRA Y VIEW OF THE CHEST 05/02/2019 12:25 pm COMPARISON: 01/14/2019 HISTORY: ORDERING SYSTEM PROVIDED HISTORY: syncope TECHNOLOGIST PROVIDED HISTORY: syncope FINDINGS: Single portable frontal view of the chest is submitted for review. The cardiac silhouette is normal in size. Lung parenchyma is clear without focal airspace consolidation, sizeable pleural effusion, or pneumothorax. Trachea is midline. Visualized osseous structures and soft tissues are grossly intact. [facility] [employer] Phone: [place], [employer] Incoming Radiant Results From [employer] - 05/02/2019 12:51 PM EST EXAMINATION: ONE XRAY VIEW OF THE CHEST 05/02/2019 12:25 pm COMPARISON: 01/14/2019 HISTORY: ORDERING SYSTEM PROVIDED HISTORY: syncope TECHNOLOGIST PROVIDED HISTORY: syncope FINDINGS: Single portable frontal view of the chest is submitted for review. The cardiac silhouette is normal in size. Lung parenchyma is clear without focal airspace consolidation, sizeable pleural effusion, or pneumothorax. Trachea is midline. Visualized osseous structures and soft tissues are grossly intact. IMPRESSION: No acute cardiopulmonary pathology. [employer] Work Phone: XR CHEST (2 VW)on 01-14-2019 XR CHEST (2 VW) EXAMINATION: TWO XRAY VIEWS OF THE CHEST 01/14/2019 12:28 pm COMPARISON: 10/01/2018 HISTORY: ORDERING SYSTEM PROVIDED HISTORY: inhalation of chemicals TECHNOLOGIST PROVIDED HISTORY: inhalation of chemicals FINDINGS: Normal heart size and pulmonary vasculature. No focal consolidations, pleural effusions, or pneumothorax. IMPRESSION: Unremarkable. Interpreted by: Manjinder Alvarez MD Signed by: Manjinder Alvarez MD 01/14/19 Final result Normal [facility] XR CHEST STANDARD (2 VW)on 0 01-14-2019 [facility]: TWO XRA Y VIEWS OF THE CHEST 01/14/2019 12:28 pm COMPARISON: 10/01/2018 HISTORY: ORDERING SYSTEM PROVIDED HISTORY: inhalation of chemicals TECHNOLOGIST PROVIDED HISTORY: inhalation of chemicals FINDINGS: Normal heart size and pulmonary vasculature. No focal consolidations, pleural effusions, or pneumothorax. [facility] [place], [employer] Incoming Radiant Results From [employer]LL[employer] - 01/14/2019 12:35 PM EDT EXAMINATION: TWO XRAY VIEWS OF THE CHEST 01/14/2019 12:28 pm COMPARISON: 10/01/2018 HISTORY: ORDERING SYSTEM PROVIDED HISTORY: inhalation of chemicals TECHNOLOGIST PROVIDED HISTORY: inhalation of chemicals FINDINGS: Normal heart size and pulmonary vasculature. No focal consolidations, pleural effusions, or pneumothorax. IMPRESSION: [facility]remarkable. [facility] Basic Metabolic Profon 10-01 (cont.) Normal [facility] Comment on above: Result Comment: Aver age GFR for 40-49 years old: 99 mL/min/1.73sq m Chronic Kidney Disease: <60 mL/min/1.73sq m Kidney failure: <15 mL/min/1.73sq m eGFR calculated using average adult body mass. Additional eGFR calculator available at: http://[email or web address]/multiple_crcl_2012.htm Performed By: #### C DP, BMP, BNP, TROPI #### [facility] [address] [place], [place] [id number] Advertising Layout Worker: Bryan Hernandez MD Anion gap [Moles/Vol] 12 mmol/L Normal 9-17 [facility] Comment on above: Performed By: #### C DP, BMP, BNP, TROPI #### [facility] [address] [place], [place] [id number] Advertising Layout Worker: Bryan Hernandez MD BUN/CRE Ratio 11 Normal 9-20 [facility] Comment on above: Performed By: #### C DP, BMP, BNP, TROPI #### [facility] [address] [place], [place] [address]35383 Advertising Layout Worker: Bryan Hernadnez MD Calcium [Mass/Vol] 9.4 mg/dL Normal 8.6-10.4 [facility] Comment on above: Performed By: #### C DP, BMP, BNP, TROPI #### [facility] [address] [place], [place] [id number] Advertising Layout Worker: Bryan Hernandez MD Chloride [Moles/Vol] 102 mmol/L Normal 98-107 [facility] Comment on above: Performed By: #### C DP, BMP, BNP, TROPI #### [facility] [address] [place], [place] [id number] Advertising Layout Worker: Bryan Hernandez MD CO2 [Moles/Vol] 24 mmol/L Normal 20-31 [facility] Comment on above: Performed By: #### C DP, BMP, BNP, TROPI #### [facility] [address] [place] [address] Advertising Layout Worker: Bryan Hernandez MD Creatinine [Mass/Vol] 0.74 mg/dL Normal 0.50-0.90 [facility] Comment on above: Performed By: #### C DP, BMP, BNP, TROPI #### [facility] [address] [place], [place] [address]83 Advertising Layout Worker: Bryan Hernandez MD GFR, Amer >60 Normal >60 [facility] Comment on above: Performed By: #### C DP, BMP, BNP, TROPI #### [facility] [address] [place], [place] [id number] Advertising Layout Worker: Bryan Hernandez MD GFR,non Amer >60 Normal >60 [facility] Comment on above: Performed By: #### C DP, BMP, BNP, TROPI #### [facility] [address] [place], [place] [address] Advertising Layout Worker: Bryan Hernandez MD Glucose [Mass/Vol] 131 mg/dL High 70-99 [facility] Comment on above: Performed By: #### C DP, BMP, BNP, TROPI #### [facility] [address] [place], [place] [id number] Advertising Layout Worker: Bryan Hernandez MD Potassium [Moles/Vol] 3.8 mmol/L Normal 3.7-5.3 [facility] Comment on above: Performed By: #### C DP, BMP, BNP, TROPI #### [facility] [address] [place], [place] [id number] Advertising Layout Worker: Bryan Hernandez MD Sodium [Moles/Vol] 138 mmol/L Normal 135-144 [facility] Comment on above: Performed By: #### C DP, BMP, BNP, TROPI #### [facility] [address] [place] [address] Advertising Layout Worker: Bryan Hernandez MD Staging: Normal [facility] Comment on above: Result Comment: Stag e 1: Some kidney damage normal GFR Stage 2: Mild kidney damage GFR 60-89 Stage 3: Moderate kidney damage GFR 30-59 Stage 4: Severe kidney damage GFR 15-29 Stage 5: Severe kidney damage GFR <15 ESRD - chronic treatment by dialysis or transplant Performed By: #### C DP, BMP, BNP, TROPI #### [facility] [address] [place] [address] Advertising Layout Worker: Bryan Hernandez MD Urea nitrogen [Mass/Vol] 8 mg/dL Normal 6-20 [facility] Comment on above: Performed By: #### C DP, BMP, BNP, TROPI #### [facility] [address] [place], [place] [id number] Advertising Layout Worker: Bryan Hernandez MD Brain Natri. Peptideon 10-01 Natriuretic peptide B (Bld) [Mass/Vol] pg/mL Normal <300 [facility] Comment on above: Result Comment: Pro- BNP results cannot be compared to BNP results. Performed By: #### C DP, BMP, BNP, TROPI #### [facility] [address] [place], [place] [id number] Advertising Layout Worker: Bryan Hernandez MD Natriuretic peptide B (Bld) [Mass/Vol] Pro-BNP Reference Range: Normal [facility] Comment on above: Result Comment: Rule Out: <300 Servin Zone: Age <50 300-450 Age 50-75 300-900 Age >75 300-1800 Usually represents mild to moderate HF but other cardiopulmonary causes cannot be ruled out. Rule In: Age <50 >450 Age 50-75 >900 Age >75 >1800 Performed By: #### C DP, BMP, BNP, TROPI #### [facility] [address] [place], [place] 1894383 Advertising Layout Worker: Bryan Hernandez MD CBC with Diffon 10-01-2018 Abs. Basophil 0.08 k/uL Normal 0.00-0.20 [facility] Comment on above: Performed By: #### C DP, BMP, BNP, TROPI #### [facility] [address] [place] [address] Advertising Layout Worker: Bryan Hernandez MD Abs.Imm.Granulocyte <0.03 Normal 0.00-0.30 [facility] Comment on above: Performed By: #### C DP, BMP, BNP, TROPI #### [address] [place] [address] Advertising Layout Worker: Bryan Hernandez MD Abs.Neutrophil (Seg) 3.94 k/uL Normal 1.50-8.10 [facility] Comment on above: Performed By: #### C DP, BMP, BNP, TROPI #### [address] [place] [address] Advertising Layout Worker: Bryan Hernandez MD Basophils/100 WBC (Bld) 1 % Normal 0-2 [facility] Comment on above: Performed By: #### C DP, BMP, BNP, TROPI #### [address] [place] [place] [address] Advertising Layout Worker: Bryan Hernandez MD Eosinophils (Bld) [#/Vol] 0.25 10*3/uL Normal 0.00-0.44 [facility] Comment on above: Performed By: #### C DP, BMP, BNP, TROPI #### [address] [place] [address] Advertising Layout Worker: Bryan Hernandez MD Eosinophils/100 WBC (Bld) 4 % Normal 1-4 [facility] Comment on above: Performed By: #### C DP, BMP, BNP, TROPI #### [address] [place] [place] [address] Advertising Layout Worker: Bryan Hernadnez MD Erythrocyte distribution width (RBC) [Ratio] 12.0 % Normal 11.8-14.4 [facility] Comment on above: Performed By: #### C DP, BMP, BNP, TROPI #### [address] [place] [id number] Advertising Layout Worker: Bryan Hernandez MD Hematocrit (Bld) [Volume fraction] 44.5 % Normal 36.3-47.1 [facility] Comment on above: Performed By: #### C DP, BMP, BNP, TROPI #### [facility] [address] [place] [id number] Advertising Layout Worker: Bryan Hernandez MD Hemoglobin (Bld) [Mass/Vol] 15.2 g/dL High 11.9-15.1 [facility] Comment on above: Performed By: #### C DP, BMP, BNP, TROPI #### [address] [place] [id number] Advertising Layout Worker: Bryan Hernandez MD Immature granulocytes (Bld) [#/Vol] 0 % Normal 0 [facility] Comment on above: Performed By: #### C DP, BMP, BNP, TROPI #### [address] [place] [id number] Advertising Layout Worker: Bryan Hernandez MD Lymphocytes (Bld) [#/Vol] 1.69 10*3/uL Normal 1.10-3.70 [facility] Comment on above: Performed By: #### C DP, BMP, BNP, TROPI #### [address] [place] [address] Advertising Layout Worker: Bryan Hernandez MD Lymphocytes/100 WBC (Bld) 26 % Normal 24-43 [facility] Comment on above: Performed By: #### C DP, BMP, BNP, TROPI #### [address] [place] [id number] Advertising Layout Worker: Bryan Hernandez MD MCH (RBC) [Entitic mass] 31.2 pg Normal 25.2-33.5 [facility] Comment on above: Performed By: #### C DP, BMP, BNP, TROPI #### [address] [place] [address] Advertising Layout Worker: Bryan Hernandez MD MCHC (RBC) [Mass/Vol] 34.2 g/dL Normal 28.4-34.8 [facility] Comment on above: Performed By: #### C DP, BMP, BNP, TROPI #### [facility] [address] [place], [place] [address] Advertising Layout Worker: Bryan Hernandez MD MCV (RBC) [Entitic vol] 91.4 fL Normal 82.6-102.9 [facility] Comment on above: Performed By: #### C DP, BMP, BNP, TROPI #### [facility] [address] [place], [place] [address] Advertising Layout Worker: Bryan Hernandez MD Monocytes (Bld) [#/Vol] 0.48 10*3/uL Normal 0.10-1.20 [facility] Comment on above: Performed By: #### C DP, BMP, BNP, TROPI #### [address] [place] [address] Advertising Layout Worker: Bryan Hernandez MD Monocytes/100 WBC (Bld) 7 % Normal 3-12 [facility] Comment on above: Performed By: #### C DP, BMP, BNP, TROPI #### [address] [place], [place] [address] Advertising Layout Worker: Bryan Hernandez MD Neutrophil (Seg) 62 % Normal 36-65 [facility] Comment on above: Performed By: #### C DP, BMP, BNP, TROPI #### [facility] [address] [place], [place] [address] Advertising Layout Worker: Bryan Hernandez MD NRBC Automated 0.0 per 100 WBC Normal 0.0 [facility] Comment on above: Performed By: #### C DP, BMP, BNP, TROPI #### [facility] [address] [place] [id number] Advertising Layout Worker: Bryan Hernandez MD Platelet mean volume (Bld) [Entitic vol] 11.3 fL Normal 8.1-13.5 [facility] Comment on above: Performed By: #### C DP, BMP, BNP, TROPI #### [facility] [address] [place], [place] [address] Advertising Layout Worker: Bryan Hernandez MD Platelets (Bld) [#/Vol] 250 10*3/uL Normal 138-453 [facility] Comment on above: Performed By: #### C DP, BMP, BNP, TROPI #### [facility] [address] [place], [place] [address] Advertising Layout Worker: Bryan Hernandez MD RBC (Bld) [#/Vol] 4.87 10*6/uL Normal 3.95-5.11 [facility] Comment on above: Performed By: #### C DP, BMP, BNP, TROPI #### [address] [place] [address] Advertising Layout Worker: Bryan Hernandez MD WBC (Bld) [#/Vol] 6.5 10*3/uL Normal 3.5-11.3 [facility] Comment on above: Performed By: #### C DP, BMP, BNP, TROPI #### [address] [place] [place] [address] Advertising Layout Worker: Bryan Hernandez MD Auto Diff Performed NOT REPORTED Normal [facility] Comment on above: Performed By: #### C DP, BMP, BNP, TROPI #### [address] [place], [place] [address] Advertising Layout Worker: Bryan Hernandez MD Platelets (d) [#/Vol] NOT REPORTED Normal [facility] Comment on above: Performed By: #### C DP, BMP, BNP, TROPI #### [address] [place] [id number] Advertising Layout Worker: Bryan Hernandez MD RBC morphology finding Nom (d) NOT REPORTED Normal [facility] Comment on above: Performed By: #### C DP, BMP, BNP, TROPI #### [facility] [address] [place] [address] Advertising Layout Worker: Bryan Hernandez MD WBC Morphology NOT REPORTED Normal [facility] Comment on above: Performed By: #### C DP, BMP, BNP, TROPI #### [facility] [address] [place] [address] Advertising Layout Worker: Bryan Hernandez MD D-Dimer Teston 10-01-2018 D-Dimer Test 0.39 mg/L FEU Normal 0.19-0.50 [facility] Comment on above: Result Comment: Elevated levels of D dimer can be seen in any state of coagulation activation including DVT, PE, arterial thrombosis, DIC, inflamatory disease, trauma, malignancy, sepsis, infection, hematoma, liver disease, post surgical state, , atherosclerosis, old age. When combined with a low clinical probability, a D dimer value of <0.50 mg/L is considered negative for DVT and PE (negative predictive value of 98%). Performed By: #### D MAKEDA #### [facility] [address] [place] [address] Advertising Layout Worker: Bryan Hernandez MD Liver Profileon 10-01-2018 Albumin [Mass/Vol] 4.1 g/dL Normal 3.5-5.2 [facility] Comment on above: Performed By: #### L IVP, MG #### [address] [place] [address] Advertising Layout Worker: Bryan Hernandez MD Albumin/Globulin [Mass ratio] 1.4 {ratio} Normal 1.0-2.5 [facility] Comment on above: Performed By: #### L IVP, MG #### [facility] [address] [place] [address] Advertising Layout Worker: Bryan Hernandez MD Alkaline Phos 90 U/L Normal 35-104 [facility] Comment on above: Performed By: #### L IVP, MG #### [facility] [address] [place], [place] [id number] Advertising Layout Worker: Bryan Hernandez MD ALT [Catalytic activity/Vol] 15 U/L Normal 5-33 [facility] Comment on above: Performed By: #### L IVP, MG #### [facility] [address] [place], [place] [id number] Advertising Layout Worker: Bryan Hernandez MD AST [Catalytic activity/Vol] 20 U/L Normal <32 [facility] Comment on above: Performed By: #### L IVP, MG #### [facility] [address] [place], [place] [address] Advertising Layout Worker: Bryan Hernandez MD Bilirubin Ql (U) 0.21 mg/dL Low 0.3-1.2 [facility] Comment on above: Performed By: #### L IVP, MG #### [facility] [address] [place], [place] 9[address]83 Advertising Layout Worker: Bryan Hernandez MD Bilirubin, Indirect CANNOT BE CALCULATED Normal 0.00-1 .00 [facility] Comment on above: Performed By: #### L IVP, MG #### [facility] [address] [place], [place] [id number] Advertising Layout Worker: Bryan Hernandez MD Bilirubin.direct [Mass/Vol] mg/dL Normal <0.31 [facility] Comment on above: Performed By: #### L IVP, MG #### [facility] [address] [place], [place] 0446183 Advertising Layout Worker: Bryan Hernandez MD Protein [Mass/Vol] 7.0 g/dL Normal 6.4-8.3 [facility] Comment on above: Performed By: #### L IVP, MG #### [facility] [address] [place], [place] 3670383 Advertising Layout Worker: Bryan Hernandez MD Globulin (S) [Mass/Vol] NOT REPORTED Normal 1.5-3.8 [facility] Comment on above: Performed By: #### L IVP, MG #### [facility] [address] [place] [address] Advertising Layout Worker: Bryan Hernandez MD Magnesiumon 10-01-2018 Magnesium [Mass/Vol] 1.6 mg/dL Normal 1.6-2.6 [facility] Comment on above: Performed By: #### L IVP, MG #### [facility] [address] [place] [address] Advertising Layout Worker: Bryan Hernandez MD Thyroid Stim. Horm.on 2018 TSH Qn 2.03 m[IU]/L Normal 0.30-5.00 [facility] Comment on above: Performed By: #### T SH #### [facility] [address] [place], [facility] Advertising Layout Worker: Bryan Hernandez MD Troponinon 10-01-2018 Troponin I.cardiac [Mass/Vol] Normal [facility] Comment on above: Result Comment: Refe rence Range: <0.03 Within reference range. 0.03-0.09 Possible myocardial damage. Repeat at appropriate intervals to rule out chronic elevation. >= 0.10 Indicative of myocardial damage. Patients with high levels of Biotin oral intake (i.e >5mg/day) may have falsely decreased Troponin T levels. Samples collected within 8 hours of biotin intake may require additional information for diagnosis. Performed By: #### T ROPI #### [facility] [address] [place], [facility] [employer] Worker: Bryan Hernandez MD Troponin I.cardiac [Mass/Vol] ng/mL Normal <0.03 [facility] Comment on above: Result Comment: Trop onin T results cannot be compared to Troponin-I results. Performed By: #### T ROPI #### [facility] [address] [place] [address] [employer]vertising Layout Worker: Bryan Hernandez MD Troponin I.cardiac [Mass/Vol] NOT REPORTED Normal 0-14 [facility] Comment on above: Performed By: #### T ROPI #### [facility] [address] [place] [address] Advertising Layout Worker: Bryan Hernandez MD Troponin I.cardiac [Mass/Vol] ng/mL Normal <0.03 [facility] Comment on above: Result Comment: Trop onin T results cannot be compared to Troponin-I results. Performed By: #### C DP, BMP, BNP, TROPI #### [facility] [address] [place] [address] Advertising Layout Worker: Bryan Hernandez MD Troponin I.cardiac [Mass/Vol] Normal [facility] Comment on above: Result Comment: Refe rence Range: <0.03 Within reference range. 0.03-0.09 Possible myocardial damage. Repeat at appropriate intervals to rule out chronic elevation. >= 0.10 Indicative of myocardial damage. Patients with high levels of Biotin oral intake (i.e >5mg/day) may have falsely decreased Troponin T levels. Samples collected within 8 hours of biotin intake may require additional information for diagnosis. Performed By: #### C DP, BMP, BNP, TROPI #### [facility] [address] [place] [address] Advertising Layout Worker: Bryan Hernandez MD Troponin I.cardiac [Mass/Vol] NOT REPORTED Normal 0-14 [facility] Comment on above: Performed By: #### C DP, BMP, BNP, TROPI #### [facility] [address] [place] [address] Advertising Layout Worker: Bryan Hernandez MD XR CHEST (2 VW)on 10-01-2018 XR CHEST (2 VW) EXAMINATION: TWO XRAY VIEWS OF THE CHEST 10/01/2018 11:38 am COMPARISON: 30 June 2013 HISTORY: ORDERING SYSTEM PROVIDED HISTORY: sob TECHNOLOGIST PROVIDED HISTORY: sob FINDINGS: Overlying cardiac monitoring electrodes are present. No cardiomegaly, vascular congestion, focal consolidation, effusion, or pneumothorax is noted. Osseous and mediastinal structures are stable in age-appropriate. Stable mild dextroscoliotic curvature of the thoracic spine is noted. IMPRESSION: No acute cardiopulmonary process. Interpreted by: Raiza Alexis MD Signed by: Raiza Alexis MD 10/01/18 Final result Normal [facility] Vital Signs Date Time Vital Sign Value Performing Clinician Facility 12-17-2023 11:11-0400 Body mass index (BMI) [Ratio] 19.22 kg/m2 Anthonymerry Lozano TIPPLE REPAIRER.CAMPUS SECURITY OFFICER Work Phone: [facility] 12-17-2023 11:11-0400 Body temperature 98.1 [degF] Anthonymerry Lozano TIPPLE REPAIRER.CAMPUS SECURITY OFFICER Work Phone: [facility] 12-17-2023 11:11-0400 Body weight 52.4 kg Anthony Lozano TIPPLE REPAIRER.CAMPUS SECURITY OFFICER Work Phone: [facility] Comment on above: with shoes 12-17-2023 11:11-0400 Diastolic blood pressure 96 mm[Hg] Anthony Lozano TIPPLE REPAIRER.CAMPUS SECURITY OFFICER Work Phone: [facility] Comment on above: provider notified 12-17-2023 11:11-0400 Heart rate 58 /min Anthonymerry Lozano TIPPLE REPAIRER.CAMPUS SECURITY OFFICER Work Phone: [facility] Comment on above: provider notified 12-17-2023 11:11-0400 Respiratory rate 18 /min Anthony Lozano TIPPLE REPAIRER.CAMPUS SECURITY OFFICER Work Phone: [facility] 12-17-2023 11:11-0400 SaO2% (BldA) [Mass fraction] 98 % Anthony Lozano TIPPLE REPAIRER.CAMPUS SECURITY OFFICER Work Phone: [facility] 12-17-2023 11:11-0400 Systolic blood pressure 144 mm[Hg] Anthony Lozano TIPPLE REPAIRER.CAMPUS SECURITY OFFICER Work Phone: [facility] Comment on above: provider notified 09-20-2023 11:35-0400 Body height 165.1 cm Adam Estrella MD Work Phone: [facility] 09-20-2023 11:35-0400 Body mass index (BMI) [Ratio] 19.9 kg/m2 Adam Estrella MD Work Phone: [facility] 09-20-2023 11:35-0400 Body weight 54.25 kg Adam Estrella MD Work Phone: [facility] 09-20-2023 11:35-0400 Diastolic blood pressure 92 mm[Hg] Adam Estrella MD Work Phone: [facility] 09-20-2023 11:35-0400 Heart rate 62 /min Adam Estrella MD Work Phone: [facility] 09-20-2023 11:35-0400 SaO2% (BldA) [Mass fraction] 99 % Adam Estrella MD Work Phone: [facility] 09-20-2023 11:35-0400 Systolic blood pressure 132 mm[Hg] Adam Estrella MD Work Phone: [facility] 08-24-2023 10:24-0400 Body mass index (BMI) [Ratio] 20.24 kg/m2 Susan Gabriel TIPPLE REPAIRER-CAMPUS SECURITY OFFICER Work Phone: [facility] 08-24-2023 10:24-0400 Body weight 55.16 kg Susan Gabriel TIPPLE REPAIRER-CAMPUS SECURITY OFFICER Work Phone: [facility] 08-24-2023 10:24-0400 Diastolic blood pressure 82 mm[Hg] Susan Gabriel TIPPLE REPAIRER-CAMPUS SECURITY OFFICER Work Phone: [facility] [employer] [facility] 08-24-2023 10:24-0400 Heart rate 76 /min Susan Gabriel TIPPLE REPAIRER-CAMPUS SECURITY OFFICER Work Phone: [facility] 08-24-2023 10:24-0400 Systolic blood pressure 122 mm[Hg] Susan Gabriel TIPPLE REPAIRER-CAMPUS SECURITY OFFICER Work Phone: [facility] 12-12-2022 11:36-0400 Body height 165.1 cm Anthony Lozano TIPPLE REPAIRER.CAMPUS SECURITY OFFICER Work Phone: [facility] 12-12-2022 11:36-0400 Body weight 56.29 kg Anthony Lozano TIPPLE REPAIRER.CAMPUS SECURITY OFFICER Work Phone: [facility] 12-12-2022 11:36-0400 Diastolic blood pressure 93 mm[Hg] Anthony Lozano TIPPLE REPAIRER.CAMPUS SECURITY OFFICER Work Phone: [facility] 12-12-2022 11:36-0400 Heart rate 79 /min Anthony Lozano TIPPLE REPAIRER.CAMPUS SECURITY OFFICER Work Phone: [facility] 12-12-2022 11:36-0400 SaO2% (BldA) [Mass fraction] 99 % Anthony Lozano TIPPLE REPAIRER.CAMPUS SECURITY OFFICER Work Phone: [facility] 12-12-2022 11:36-0400 Systolic blood pressure 135 mm[Hg] Anthony Lozano TIPPLE REPAIRER.CAMPUS SECURITY OFFICER Work Phone: [facility] 10-31-2022 21:05-0400 Diastolic blood pressure 79 mm[Hg] PHYSICIAN NO [facility] 10-31-2022 21:05-0400 Heart rate 53 /min PHYSICIAN NO [facility] 10-31-2022 21:05-0400 Respiratory rate 20 /min PHYSICIAN NO [facility] 10-31-2022 21:05-0400 SaO2% (BldA) [Mass fraction] 96 % PHYSICIAN NO [facility] 10-31-2022 21:05-0400 Systolic blood pressure 157 mm[Hg] PHYSICIAN NO [facility] 10-31-2022 18:50-0400 Body height 165.1 cm PHYSICIAN NO [facility] 10-31-2022 18:50-0400 Body temperature 98.6 [degF] PHYSICIAN NO [facility] 10-31-2022 18:50-0400 Body weight 55.7 kg PHYSICIAN NO [facility] 07-31-2022 11:50-0400 Body height 165.1 cm Valarie Charles Other [facility] Other 07-31-2022 11:50-0400 Body mass index (BMI) [Ratio] 20.47 kg/m2 Valarie Charles Other [facility] Other 07-31-2022 11:50-0400 Body temperature 97.4 [degF] Valarie Charles Other [facility] Other 07-31-2022 11:50-0400 Body weight 55.79 kg Valarie Charles Other [facility] Other 07-31-2022 11:50-0400 Respiratory rate 18 /min Valarie Charles Other [facility] Other 07-31-2022 11:50-0400 SaO2% (BldA) [Mass fraction] 99 % Valarie Charles Other [facility] Other 07-05-2022 09:30-0500 Body height 165.1 cm Lainey Valerio Other [facility] Other 07-05-2022 09:30-0500 Body mass index (BMI) [Ratio] 19.97 kg/m2 Lainey Valerio Other [facility] Other 07-05-2022 09:30-0500 Body temperature 99.2 [degF] Lainey Valerio Other [facility] Other 07-05-2022 09:30-0500 Body weight 54.43 kg Lainey Valerio Other [facility] Other 07-05-2022 09:30-0500 Respiratory rate 18 /min Lainey Valerio Other [facility] Other 07-05-2022 09:30-0500 SaO2% (BldA) [Mass fraction] 99 % Lainey Lou Other [facility] Other 05-23-2022 13:30-0500 Body height 165.1 cm Anthony Lozano TIPPLE REPAIRER.CAMPUS SECURITY OFFICER Work Phone: [facility] 05-23-2022 13:30-0500 Body weight 54.43 kg Anthony Lozano TIPPLE REPAIRER.CAMPUS SECURITY OFFICER Work Phone: [facility] 05-23-2022 13:30-0500 Diastolic blood pressure 75 mm[Hg] Anthony Lozano TIPPLE REPAIRER.CAMPUS SECURITY OFFICER Work Phone: [facility] 05-23-2022 13:30-0500 Heart rate 71 /min Anthony Lozano TIPPLE REPAIRER.CAMPUS SECURITY OFFICER Work Phone: [facility] 05-23-2022 13:30-0500 SaO2% (BldA) [Mass fraction] 97 % Anthony Lozano TIPPLE REPAIRER.CAMPUS SECURITY OFFICER Work Phone: [facility] 05-23-2022 13:30-0500 Systolic blood pressure 110 mm[Hg] Anthony Lozano TIPPLE REPAIRER.CAMPUS SECURITY OFFICER Work Phone: [facility] 01-17-2022 16:00-0400 Body height 165.1 cm Violetta Cao Other [facility] Other 01-17-2022 16:00-0400 Body mass index (BMI) [Ratio] 20.8 kg/m2 Violetta Cao Other [facility] Other 01-17-2022 16:00-0400 Body temperature 101.8 [degF] Violetta Cao Other [facility] Other 01-17-2022 16:00-0400 Body weight 56.7 kg Violetta Cao Other [facility] Other 01-17-2022 16:00-0400 Respiratory rate 20 /min Violetta Cao Other [facility] Other 01-17-2022 16:00-0400 SaO2% (BldA) [Mass fraction] 95 % Violetta Cao Other [facility] Other 12-09-2021 12:25-0400 Body height 165.1 cm Piedad Holland Other [facility] Other 12-09-2021 12:25-0400 Body mass index (BMI) [Ratio] 20.8 kg/m2 Piedad Holland Other [facility] Other 12-09-2021 12:25-0400 Body temperature 98.4 [degF] Piedad Holland Other [facility] Other 12-09-2021 12:25-0400 Body weight 56.7 kg Piedad Holland Other [facility] Other 12-09-2021 12:25-0400 Diastolic blood pressure 101 mm[Hg] Piedad Holland Other [facility] Other 12-09-2021 12:25-0400 Respiratory rate 18 /min Piedad Holland Other [facility] Other 12-09-2021 12:25-0400 SaO2% (BldA) [Mass fraction] 98 % Piedad Holland Other [facility] Other 12-09-2021 12:25-0400 Systolic blood pressure 145 mm[Hg] Piedad Holland Other [facility] Other 03-06-2021 10:45-0400 Body height 165.1 cm Valarie Charles Other [facility] Other 03-06-2021 10:45-0400 Body mass index (BMI) [Ratio] 20.8 kg/m2 Valarie Charles Other [facility] Other 03-06-2021 10:45-0400 Body temperature 97.5 [degF] Valarie Charles Other [facility] Other 03-06-2021 10:45-0400 Body weight 56.7 kg Valarie Charles Other [facility] Other 03-06-2021 10:45-0400 Respiratory rate 18 /min Valarie Charles Other [facility] Other 03-06-2021 10:45-0400 SaO2% (BldA) [Mass fraction] 98 % Valarie Charles Other [facility] Other 05-19-2019 21:59-0500 Body temperature 98.2 [degF] Demidallas De JesusRadha TIPPLE REPAIRER - CAMPUS SECURITY OFFICER Work Phone: [employer] Work Phone: 05-19-2019 21:59-0500 Diastolic blood pressure 83 mm[Hg] Demi Floressler TIPPLE REPAIRER - CAMPUS SECURITY OFFICER Work Phone: [employer] Work Phone: 05-19-2019 21:59-0500 Heart rate 61 /min DemiStockpulseRadha TIPPLE REPAIRER [employer] Work Phone: [employer] Phone: 05-19-2019 21:59-0500 Respiratory rate 18 /min DemiStockpulseRadha TIPPLE REPAIRER - CAMPUS SECURITY OFFICER Work Phone: [employer] Work Phone: 05-19-2019 21:59-0500 SaO2% (BldA) [Mass fraction] 98 % Demi Floressler TIPPLE REPAIRER - CAMPUS SECURITY OFFICER Work Phone: [employer] Work Phone: 05-19-2019 21:59-0500 Systolic blood pressure 163 mm[Hg] Demi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 achievable. 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 There is no intracranial hemorrhage, extra-axial fluid collection, mass effect, midline shift, or hydrocephalus. Normally aerated paranasal sinuses. Changes of acute ischemia may be delayed on CT. If there is clinical concern for acute ischemia, consider MRI. IMPRESSION: * No acute intracranial findings. 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 Consider MRI with gadolinium for further evaluation as clinically indicated. * Stat report provided to emergency room at time of exam. Finalized by Levar Cortez MD on 04/14/2022 1:31 PM Procedure Note Levar Cortez MD - 04/14/2022 Clinical: Syncope. Left orbital bruising. EXAM: NONCONTRAST BRAIN CT Comparison: none Procedure: Multi-detector CT performed through the brain without IV contrast. Automatic exposure control utilized. All CT scans at this facility use dose modulation, iterative reconstruction, and/or weight based dosing when appropriate to reduce radiation dose to as low as reasonably achievable. 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 There is no intracranial hemorrhage, extra-axial fluid collection, mass effect, midline shift, or hydrocephalus. Normally aerated paranasal sinuses. Changes of acute ischemia may be delayed on CT. If there is clinical concern for acute ischemia, consider MRI. IMPRESSION: * No acute intracranial findings. 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 Consider MRI with gadolinium for further evaluation as clinically indicated. Impression: Based on triage, recommend patient be scheduled with MRI brain and any FRANCISCO Brigida Castorena PA-C April 17, 2022 documented in this encounter[facility] Evaluation note* Encounter Date Diagnosis Assessment Notes Treatment Notes Treatment Clinical Notes Jan, COVID-19 (ICD-10 - U07.1) COVID PCR test performed in office today. Advised patient that test was positive. Instructed patient to isolate per CDC guidelines for 5 days from symptom onset, mask 5 days following. May return to work/activities outside home after isolation period as long as symptoms are improving and has been afebrile for 24 hours without use of antipyretic. Advised patient that treatment of COVID is with viral supportive care, OTC cold medications as directed, Tylenol/Motrin as needed for body aches/fever. Will send in rx of Zofran and Albuterol Inhaler as needed. Increase fluids and rest. Encouraged use of cool mist humidifier. Follow-up with PCP to advise of positive result and further management. Immediate eval for SOB, difficulty, chest pain, fevers that do not break with antipyretic or any other concerning symptoms as reviewed on patient education handout. Patient verbalizes understanding and is agreeable to treatment plan. Patient left in stable condition Jan, Contact with and (suspected) exposure to other viral communicable diseases (ICD-10 - Z20.828) [facility] 08-05-2022 Evaluation note* Encounter Date Diagnosis Assessment Notes Treatment Notes Treatment Clinical Notes Dec, Sore throat (ICD-10 - J02.9) Rapid COVID test results are negative. Patient needs to continue to quarantine x 5 days from last date of known exposure. Advised that patient to monitor temp, rest, stay hydrated and treat symptomatically if indicated. Patient should follow up if new/worsening symptoms for further eval and possible re-testing. Advised patient to seek immediate evaluation via ER if warning symptoms, including but not limited to intracable fevers, s/s of respir distress, s/s of dehydration or severe abdominal pain. Dec, Elevated blood pressure reading (ICD-10 - R03.0) BP reading was high in clinic. She denies known dx HTN. Pt is asymptomatic. Reviewed warning s/s that require immediate eval via ER. Recommended lifestyle changes, including dec salt intake and caffeine and f/u with PCP for further eval and mgmt. Pt does not have PCP at this time, I will put in a referral. [facility] Other 12-16-2021 Evaluation note* Encounter Date Diagnosis Assessment Notes Treatment Notes Treatment Clinical Notes Apr, Contact with and (suspected) exposure to other viral communicable diseases (ICD-10 - Z20.828) Apr, Other Additional time spent conducting pre-visit phone call, screening for symptoms, instructions on social distancing, application and removal of PPE, and cleaning of examination room, equipment and supplies was preformed. Patient education given for testing methodology and results. Patient care instructions given in writting by [facility] document. [facility] Other 10-31-2021 Evaluation note* Encounter Date Diagnosis Assessment Notes Treatment Notes Treatment Clinical Notes Feb, Contact with and (suspected) exposure to other viral communicable diseases (ICD-10 - Z20.828) Feb, Viral upper respiratory illness (ICD-10 - J06.9) Drink plenty fluids, get plenty of rest. Off work tomorrow. Get your PCR Covid test done on Sunday if no improvement. Feb, Other Additional time spent conducting pre-visit phone call, screening for symptoms, instructions on social distancing, application and removal of PPE, and cleaning of examination room, equipment and supplies was preformed. Patient education given for testing methodology and results. Patient care instructions given in writting by [facility] document. [facility] Other 10-22-2021 Evaluation note* Encounter Date Diagnosis Assessment Notes Treatment Notes Treatment Clinical Notes Feb, Encounter for screening for other viral diseases (ICD-10 - Z11.59) Feb, Other Additional time spent conducting pre-visit phone call, screening for symptoms, instructions on social distancing, application and removal of PPE, and cleaning of examination room, equipment and supplies was preformed. Patient education given for testing methodology and results. Patient care instructions given in writting by [facility] document. [facility] Other 07-15-2021 NotePROCEDURE: XR ANKLE LT MIN 3 V, XR FOOT LT MIN 3 VIEWS HISTORY: Traumatic injury , pain lateral ankle and top of foot COMPARISON: None. FINDINGS: BONES:No fracture, acute abnormality, or significant arthropathy. SOFT TISSUES:No visible soft tissue swelling. EFFUSION:None visible. OTHER: Negative. IMPRESSION: 1. No acute bone abnormality. Electronically authenticated by: SAKSHI GARCIA Date: 2020-11-18 07:55[facility]07-15-2021 NotePROCEDURE: XR ANKLE LT MIN 3 V, XR FOOT LT MIN 3 VIEWS HISTORY: Traumatic injury , pain lateral ankle and top of foot COMPARISON: None. FINDINGS: BONES:No fracture, acute abnormality, or significant arthropathy. SOFT TISSUES:No visible soft tissue swelling. EFFUSION:None visible. OTHER: Negative. IMPRESSION: 1. No acute bone abnormality. Electronically authenticated by: SAKSHI GARCIA Date: 2020-11-18 07:55[facility]01-13-2020 Hospital Discharge instructions* Instructions* Nurys Fernández PA-C - 05/19/2019 Watch for redness drainage and swelling. Stitches need to be removed in 7 days. Keep finger in splint until seen in follow-up. * Attachments The following attachments cannot be sent through Care Everywhere. * Lacerations: Stitches (Panamanian) documented in this [facility] [employer] Work Phone: [phone] 483-372712-28-2019 History of Present illness Narrative* Roopa Abarca RN - 05/03/2019 11:11 AM EST Patient ambulatory to front entrance with all personal belongings for discharge home. * Roopa Abarca RN - 05/03/2019 11:05 AM EST Discharge instructions reviewed with the patient. All questions and concerns were addressed. Unit number provided to the patient should they come up with any questions once they are home. Pt verbalizes understanding of instructions and that she will have to make her own follow up appointment due toher PCP office being closed toady. * Se Smallwood MD - 05/03/2019 10:06 AM EST Doing better. Vitals: 05/03/19 0745 BP: 120/78 Pulse: 65 Resp: 16 Temp: 98.5 F (36.9 C) SpO2: 96% Orthostatics negative Regular. Clear Principal Problem: Syncope Active Problems: Dehydration ? viral URI Resolved Problems: * No resolved hospital problems. * home * Roopa Abarca RN - 05/03/2019 10:[address] Smallwood at patient bedside. * Roopa Abarca RN - 05/03/2019 7:45 AM EST Patient assessed and vitals obtained at this time. Pt is alert and oriented x4. Orthostatic blood pressures obtained and were negative. Pt denied feeling dizzy or light headedness during ortho b/p's.Respirations are unlabored at 16 breaths per min. Pt denies the need for anything else at this time. * Elizabeth Schaefer RPH - 05/02/2019 6:23 PM EST PHARMACY NOTE: Eliane Gutierrez was ordered CoQ10. As per the [facility] Formulary Committee policy, herbals and certain dietary supplements will be discontinued. The herbal or dietary supplement may be continued after discharge from the hospital. * Melissa Gunn RN - 05/02/2019 2:50 PM EST Facsimile Transmission Cover Sheet Information contained in this transmission is for the sole use of the intended recipients and may contain confidential and privileged information. Any unauthorized review, use, disclosure or distribution is prohibited. If you are not the intended recipient, please contact the sender and destroy allcopies of the original message. Disclosure is made for the purpose of healthcare operations and continuity of care. To: From: [facility] Sender:_WILBERT Torres Phone Number:_[phone] This request is: Urgent - No Information and/or questions regarding patient condition: , Your patient in room [address] [place] is wondering if she could have a nicotine patch, she smokes about 1.5 packs a day. Thanks Physician Signature, Date and Time needed for any orders written on this fax. Thank you. Signature Date [facility] [phone] 615-117812-28-2019 Hospital Discharge instructions* Discharge Instr - Activity* Roopa Abarca RN - 05/03/2019 10:28 AM EST As tolerated * Discharge Instr - Diet* Roopa Abarca RN - 05/03/2019 10:28 AM EST ? Good nutrition is important when healing from an illness, injury, or surgery. Follow any nutrition recommendations given to you during your hospital stay. ? If you were given an oral nutrition supplement while in the hospital, continue to take this supplement at home. You can take it with meals, in-between meals, and/or before bedtime. These supplements can be purchased at most local grocery stores, pharmacies, and chain super-stores. ? If you have any questions about your diet or nutrition, call the hospital and ask for the dietitian. General diet * Additional Instructions* Roopa Abarca RN - 05/03/2019 Patient will be followed by RadhaDemi APRN - CNP in 1-2 weeks * Attachments The following attachments cannot be sent through Care Everywhere. * Dehydration (Panamanian) [facility] Phone: [phone] Hospital course Narrative* Se Smallwood MD - 05/03/2019 10:08 AM EST Discharge Summary Eliane Gutierrez : 1975 Admit date: 05/02/2019 Discharge date: Admitting Physician: Se Smallwood MD Discharge Diagnoses: Principal Problem: Syncope Active Problems: Dehydration ? viral URI Resolved Problems: * No resolved hospital problems. * Active Hospital Problems Diagnosis Date Noted Syncope [R55] 05/02/2019 Dehydration ? viral URI [E86.0] 05/02/2019 Discharge Medications: Eliane Gutierrez Home Medication Instructions [id number]:[id number] Printed on:05/03/19 1008 Medication Information atorvastatin (LIPITOR) 10 MG tablet Take 10 mg by mouth daily Coenzyme Q10 (CO Q-10) 50 MG CAPS Take 1 tablet by mouth nightly estrogens, conjugated, (PREMARIN) 0.45 MG tablet Take 0.45 mg by mouth daily ibuprofen (ADVIL;MOTRIN) 200 MG tablet Take 800 mg by mouth every 6 hours as needed for Pain. nicotine (NICODERM CQ) 21 MG/24HR Place 1 patch onto the skin daily vitamin B-12 (CYANOCOBALAMIN) 100 MCG tablet Take 2,500 mcg by mouth daily Consultants: none Hospital Course: Eliane Gutierrez is a 43 y.o. female admitted with syncope x 2 with maybe viral prodrome. Orthostatics negative. Patient improved with fluids. Exam: regular. Clear. No edema. Condition: good Disposition: Home Patient will be followed by Demi Garcia APRN - CNP in 1-2 weeks Signed: Se Smallwood 05/03/2019, 10:08 AM documented in [facility] Phone: evaluation note* Diagnosis Syncope and collapse- Primary Dehydration ? viral URI Dehydration Syncope Syncope and collapse documented in this encounter [facility] Phone: evaluation note* Diagnosis Laceration of left ring finger without foreign body without damage to nail, initial encounter- Primary documented in this encounter [facility] Phone: evaluation noteNo InformationNoThengine Co Other Evaluation note* Diagnosis History of pineal cyst- Primary Personal history of other endocrine, metabolic, and immunity disorders documented in this encounter [facility] note* Diagnosis History of pineal cyst- Primary Personal history of other endocrine, metabolic, and immunity disorders documented in this encounter [facility] noteNo assessment information [facility] Work Phone: Evaluation note* Diagnosis History of pineal cyst- Primary Personal history of other endocrine, metabolic, and immunity disorders documented in this encounter [facility] note* Diagnosis History of pineal cyst Personal history of other endocrine, metabolic, and immunity disorders documented in this encounter [facility] note* Diagnosis History of pineal cyst- Primary Personal history of other endocrine, metabolic, and immunity disorders Syncope, unspecified syncope type documented in this encounter [facility] note* Diagnosis History of pineal cyst Personal history of other endocrine, metabolic, and immunity disorders documented in this encounter [facility] note* Diagnosis Encounter for screening colonoscopy- Primary Screen for colon cancer Special screening for malignant neoplasms, colon [facility] Diagnosis Vasovagal syncope- Primary Syncope and collapse Syncope and collapse Primary hypertension Unspecified essential hypertension Tobacco abuse Tobacco use disorder [facility] N[facility]ative - Reported* Type Description Date Surgical History hysterectomy Surgical History tubal ligation Surgical History ovarian cyst Surgical History appendectomy Hospitalization History See Above StepUp Other History general Narrative - Reported* Type Description Date Medical History COPD Medical History Cigarette Smoker Surgical History hysterectomy Surgical History tubal ligation Surgical History ovarian cyst Surgical History appendectomy Hospitalization History See Above StepUp Other History general Narrative - Reported* Type Description Date Medical History COPD Medical History Cigarette Smoker Medical History Pineal Gland Cyst Surgical History hysterectomy Surgical History tubal ligation Surgical History ovarian cyst Surgical History appendectomy Hospitalization History See Above StepUp Other InstructionsNot on filedocumented in [facility] encounter [facility] filedocumented in this encounter [facility] filedocumented in this encounter [facility] Discharge Instructions * Attachments The following attachments cannot be sent through Care Everywhere. 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 Latest Code Status on File Code Status Date Activated Date Inactivated Comments Full Code 05/02/2019 2:49 PM Latest Code Status on File Code Status Date Activated Date Inactivated Comments Full Code 05/02/2019 2:49 PM 05/03/2019 1:19 PM Advance Directive Response Recorded Date/ Time Advance Directives No October 31 8:49pm Summary Purpose Family History No Family History Records FoundNo Family History Records FoundNo Family History Records FoundNo Family History Records FoundNo Family History Records FoundNo Family History Records Found Reason for Referral Specialty Diagnoses / Procedures Referred By Grace aly Referred To Contact Diagnoses Encounter for screening colonoscopy Susan Garbiel, TIPPLE REPAIRER-CAMPUS SECURITY OFFICER [address] [place] [address] Referral ID Status Reason Start Date Expiration Date Visits Re quested Visits Authorized [id number] Closed 1 1 Specialty Diagnoses / Procedures Referred By Grace aly Referred To Contact MR IMAGING Diagnoses History of pineal cyst Procedures MRI BRAIN WO/W IVCON MRI BRAIN BRAIN STEM W/O W/CONTRAST MATERIAL Brigida Castorena PA-C [address] [place] [address] Mr Imaging Referral ID Status Reason Start Date Expiration Date Visits Requested Visits Authorized [id number] Pending Review Auto-Generat ed Referral 2 05/17/2023 1 1 Reason Needs primary care D x COPD in ER earlier this year Elevated BP reading without previous diagnosis of HTN Diagnosis 1 Elevated blood press ure reading (R03.0) Referral Organization [facility] Referring Provider First Name Piedad Referring Provider Last Name Holland Referring Provider Specialty Nurse Pract itioner Referred Organization Unknown Facility Referred Provider Specialty Family Medic ine Referral Priority Urgent Chief Complaint and Reason for Visit Chief Complaint chest pain Additional Source Comments Reason for Visit (unrecogniz ed section and content) Reason Comments Nausea pt states onset sinc e yesterday when she had a septic pipe burst and the odor from the carbonating stone cleaner was in her apartment all night. Pt states she just feels weird, like I am floating Reason Comments Loss of Consciousness X 2 episodes today . Pt reports feeling weak. Pt denies pain and reports emesis x 1 yesterday Generalized Body Aches Onset yesterday Reason Comments Laceration left ring finger, cu t on broken glass while doing dishes Reason Comments New Patient Pineal Cyst Reason Comments F/U 6 Month Established Patient Reason Comments Radiology MRI Specialty Diagnoses / Procedures Referred By Grace aly Referred To Contact MR IMAGING Diagnoses History of pineal cyst Procedures MRI BRAIN WO/W IVCON MRI BRAIN BRAIN STEM W/O W/CONTRAST MATERIAL Brigida Castorena PA-C [address] [place] [address] Mr [facility] [place] [address] Referral ID Status Reason Start Date Expiration Date V isits Requested Visits Authorized [id number] Closed Auto-Generate d Referral 05/15/2022 05/06/2023 1 1 Specialty Diagnoses / Procedures Referred By Grace aly Referred To Contact MR IMAGING Diagnoses History of pineal cyst Procedures MRI BRAIN WO/W IVCON MRI BRAIN BRAIN STEM W/O W/CONTRAST MATERIAL Anthony Lozano APRN.CAMPUS SECURITY OFFICER [address] [place] [address] Mr Imaging [place] [address] Referral ID Status Reason Start Date Expiration Date V isits Requested Visits Authorized [id number] Closed Auto-Generate d Referral 11/20/2022 06/22/2023 1 1 Reason Comments Established Patient Referral ID Status Reason Start Date Expiration Date V isits Requested Visits Authorized [id number] Closed Auto-Generate d Referral 12/13/2023 01/11/2024 1 1 Reason Comments Colon Cancer Screening First colon Reason Comments New Patient [facility] SYNCOPAL EPISODES [facility] 08/14/23 SCHED W/PT Specialty Diagnoses / Procedures Referred By Contac t Referred To Contact Cardiology Diagnoses Syncope and collapse [facility] [address] [place] [address] [facility] [address] [place] [address] Referral ID Status Reason Start Date Expiration Date Visits Requested Visits Authorized [id number] Pending Review Specialty Services Required 08/17/2023 08/16/2024 1 1 INFORMATION SOURCE (unrecogn ized section and content) DATE CREATED AUTHOR 06/02/2019 [facility] DATE CREATED AUTHOR AUTHOR'S ORGANIZ ATION 11/22/2020 [facility] DATE CREATED AUTHOR AUTHOR'S ORGANIZ ATION 11/16/2022 [facility] DATE CREATED AUTHOR AUTHOR'S ORGANIZ ATION 08/25/2023 [facility] DATE CREATED AUTHOR AUTHOR'S ORGANIZ ATION 12/18/2023 [facility] DATE CREATED AUTHOR AUTHOR'S ORGANIZ ATION 07/14/2024 [facility] Source Comments (unrecognize d section and content) In the event this informatio n is protected by the Federal Confidentiality of Alcohol and Drug Abuse Patient Records regulations: The Federal rules restrict any use of the information to criminally investigate or prosecute any alcohol or drug abuse patient.[facility] Hospital[facility] the event this information is protected by the Federal Confidentiality of Alcohol and Drug Abuse Patient Records regulations: The Federal rules restrict any use of the information to criminally investigate or prosecute any alcohol or drug abuse patient.[facility] HospitalIn the event this information is protected by the Federal Confidentiality of Alcohol and Drug Abuse Patient Records regulations: The Federal rules restrict any use of the information to criminally investigate or prosecute any alcohol or drug abuse patient.[facility] HospitalIn the event this information is protected by the Federal Confidentiality of Alcohol and Drug Abuse Patient Records regulations: The Federal rules restrict any use of the information to criminally investigate or prosecute any alcohol or drug abuse patient.[facility] HospitalIn the event this information is protected by the Federal Confidentiality of Alcohol and Drug Abuse Patient Records regulations: The Federal rules restrict any use of the information to criminally investigate or prosecute any alcohol or drug abuse patient.[facility] HospitalIn the event this information is protected by the Federal Confidentiality of Alcohol and Drug Abuse Patient Records regulations: The Federal rules restrict any use of the information to criminally investigate or prosecute any alcohol or drug abuse patient.[facility] HospitalIn the event this information is protected by the Federal Confidentiality of Alcohol and Drug Abuse Patient Records regulations: The Federal rules restrict any use of the information to criminally investigate or prosecute any alcohol or drug abuse patient.[facility] Care Teams (unrecognized sec tion and content) Team Status: Active Member Role Status Dates PHYSICIAN NO FAMILY Primary Care Provider Active Team Status: Inactive Member Role Status Dates PHYSICIAN NO FAMILY Primary Care Provider Active Wade Cook MD Emergency Provider Active Director Product Management Relationship Specialty Start Date End Date Karen Diane APRN-AERIAL GUNNER SUPERINTENDENT [address] [phone] PCP - General Family Medicine 07/18/23 Director Product Management Relationship Specialty Start Date End Date Karen Diane APRN-AERIAL GUNNER SUPERINTENDENT [address] [place] [phone] PCP - General Family Medicine 07/18/23 Director Product Management Relationship Specialty Start Date End Date Karen Diane APRN-AERIAL GUNNER SUPERINTENDENT [address] [place] [address] PCP - General Family Medicine 07/18/23 Director Product Management Relationship Specialty Start Date End Date Karen Diane APRN-AERIAL GUNNER SUPERINTENDENT [address] [place], [place] [phone] PCP - General Family Medicine 07/18/23 Director Product Management Relationship Specialty Start Date End Date Karen DianeGURDEEP-DORIAN [address] [place] [id number] PCP - General Family Medicine 07/18/23 Goals (unrecognized section and content) Goals may be documented in a n alternate section FOR RECORDS PERTAINING TO PATIENTS WHO ARE OR HAVE BEEN ENROLLED IN A CHEMICAL DEPENDENCY/SUBSTANCEABUSE PROGRAM, SOME INFORMATION MAY BE OMITTED. This clinical summary was aggregated from multiple sources. Caution should be exercised in using it in the provision of clinical care. This summary normalizes information from multiple sources, and as a consequence, information in this document may materially change the coding, format and clinical context of patient data. In addition, data may be omitted in some cases. CLINICAL DECISIONS SHOULD BE BASED ON THE PRIMARY CLINICAL RECORDS. [employer] provides no warranty or guarantee of the accuracy or completeness of information in this document.
== END 2024-08-20 12:04 | disposition home or self-care (01) ==
LOC: MRI 12:03
PROVIDERS: Visit Provider Physician Assistant
DX: M25.511 Pain in right shoulder (principal); M75.121 Complete rotator cuff tear or rupture of right shoulder, not specified as traumatic; M25.411 Effusion, right shoulder
CPT/HCPCS: 73221